=== PATIENT | male | born 1945 | race Caucasian/White ===

== ENCOUNTER 2019-12-01 06:50 | Outpatient (CLI) | payer MEDICARE, MEDICAID, SELFPAY ==
[2019-12-01 07:43] LABS: Basophils Absolute Auto 0.1 K/mm3 (0.0-0.1); Eosinophils Absolute Auto 0.4 K/mm3 (0-0.3); Eosinophils Percent Auto 6.7 % (0-4.4); Hematocrit 36.3 % (42.0-52.0); Hemoglobin 11.7 g/dL (14.0-18.0); Immature Granulocyte Absolute 0.03 K/mm3 (0.00-0.031); Immature Granulocyte Percent A 0.6 % (0-0.5); Lymphocytes Percent Auto 36.1 % (18.3-44.2); Mean Corpuscular HGB Conc 32.2 g/dl (32-36); Mean Corpuscular Volume 86.8 fl (80-100); Mean Platelet Volume 10.3 fl (7.4-10.4); Monocytes Absolute Auto 0.5 K/mm3 (0.1-0.6); Monocytes Percent Auto 10.3 % (2.6-8.5); Neutrophils Absolute Auto 2.4 K/mm3 (1.3-6.7); Neutrophils Percent Auto 45.3 % (45.5-73.1); Platelet Count Result 196 k/mm3 (150-375); Red Blood Count 4.18 M/mm3 (4.6-6.20); Red Cell Distribution Width 13.4 % (11.5-14.5); White Blood Count 5.3 K/mm3 (4.5-10.0)
[2019-12-01 08:02] LABS: Hemoglobin A1C 5.4 % (<5.7)
[2019-12-01 08:05] LABS: Blood Urea Nitrogen 24 mg/dL (9-20); Calcium 9.3 mg/dL (8.4-10.2); Carbon Dioxide 31 mmol/L (22-30); Chloride 103 mmol/L (98-107); Estimated Glomerular Filt Rate > 60; Glucose 97 mg/dL (75-110); Phenytoin Dilantin 4 ug/mL (10-20); Potassium 4.1 mmol/L (3.4-5.0); Sodium 143 mmol/L (137-145)
== END 2019-12-01 06:51 | disposition home or self-care (01) ==
PROVIDERS: PCP Internal Medicine; Visit Provider Internal Medicine
DX: G40.909 Epilepsy, unspecified, not intractable, without status epilepticus (principal); Z79.899 Other long term (current) drug therapy
CPT/HCPCS: 36415; 80048; 80185; 83036; 85025

== ENCOUNTER 2020-04-05 07:38 | Outpatient (CLI) | payer MEDICARE, MEDICAID, SELFPAY ==
[2020-04-05 08:31] LABS: Basophils Percent Auto 0.8 % (0.2-1.2); Eosinophils Absolute Auto 0.3 K/mm3 (0-0.3); Eosinophils Percent Auto 5.1 % (0-4.4); Hematocrit 38.7 % (42.0-52.0); Hemoglobin 12.4 g/dL (14.0-18.0); Immature Granulocyte Absolute 0.02 K/mm3 (0.00-0.031); Immature Granulocyte Percent A 0.4 % (0-0.5); Lymphocytes Absolute Auto 1.51 K/mm3 (0.9-3.2); Lymphocytes Percent Auto 30.8 % (18.3-44.2); Mean Corpuscular Hemoglobin 27.4 pg (26-34); Mean Corpuscular Volume 85.6 fl (80-100); Mean Platelet Volume 10.1 fl (7.4-10.4); Monocytes Absolute Auto 0.5 K/mm3 (0.1-0.6); Monocytes Percent Auto 10.8 % (2.6-8.5); Neutrophils Absolute Auto 2.6 K/mm3 (1.3-6.7); Neutrophils Percent Auto 52.1 % (45.5-73.1); Platelet Count Result 210 k/mm3 (150-375); Red Blood Count 4.52 M/mm3 (4.6-6.20); Red Cell Distribution Width 13.8 % (11.5-14.5); White Blood Count 4.9 K/mm3 (4.5-10.0)
[2020-04-05 08:38] LABS: Add Urine Microscopic? YES; Appearance Urine Cloudy (Clear); Bacteria Urine Trace /hpf; Bilirubin Urine Negative (Negative); Blood Urine 1+ (Negative); Color Urine Yellow (Yellow); Glucose Urine UA Negative (Negative); Ketones Urine Negative (Negative); Leukocyte Esterase Ur 2+ LEU/UL (NEGATIVE); Mucus Urine Rare /lpf; Nitrate Urine Negative (Negative); Protein Urine Negative (Negative); Specific Grav Ur 1.008 (1.001-1.035); Urobilinogen Urine Negative mg/dL (<2.0)
[2020-04-05 08:47] LABS: Blood Urea Nitrogen 20 mg/dL (9-20); Calcium 8.8 mg/dL (8.4-10.2); Carbon Dioxide 30 mmol/L (22-30); Chloride 105 mmol/L (98-107); Cholesterol 138 mg/dL (0-200); Estimated Glomerular Filt Rate > 60; Glucose 102 mg/dL (75-110); HDL Direct 46 mg/dL; Phenytoin Dilantin 6 ug/mL (10-20); Potassium 4.4 mmol/L (3.4-5.0); Sodium 140 mmol/L (137-145); Triglycerides 69 mg/dL (<150)
[2020-04-05 08:56] LABS: LDL Cholesterol Direct 67 mg/dL
[2020-04-05 09:02] LABS: Iron 65 ug/dL (49-181)
[2020-04-05 09:14] LABS: Percent Iron Saturation 23 % (20-50)
[2020-04-05 09:36] LABS: Free T4 Free Thyroxine 1.04 ng/mL (0.78-2.19); Vitamin D 25 Hydroxy 57.8 ng/mL
== END 2020-04-05 07:39 | disposition home or self-care (01) ==
PROVIDERS: PCP Internal Medicine; Visit Provider Internal Medicine
DX: G40.909 Epilepsy, unspecified, not intractable, without status epilepticus (principal); N31.9 Neuromuscular dysfunction of bladder, unspecified; D63.1 Anemia in chronic kidney disease; Z79.899 Other long term (current) drug therapy; N18.1 Chronic kidney disease, stage 1
CPT/HCPCS: 36415; 80048; 80061; 80185; 81001; 82306; 82728; 83540; 83550; 84439; 84443; 85025

== ENCOUNTER 2020-07-28 07:53 | Outpatient (CLI) | payer MEDICARE, MEDICAID, SELFPAY ==
[2020-07-28 08:45] LABS: Hematocrit 37.8 % (42.0-52.0); Hemoglobin 12.5 g/dL (14.0-18.0); Mean Corpuscular HGB Conc 33.1 g/dl (32-36); Mean Corpuscular Hemoglobin 28.2 pg (26-34); Mean Corpuscular Volume 85.1 fl (80-100); Mean Platelet Volume 10.1 fl (7.4-10.4); Platelet Count Result 213 k/mm3 (150-375); Red Blood Count 4.44 M/mm3 (4.6-6.20); Red Cell Distribution Width 13.5 % (11.5-14.5); White Blood Count 5.4 K/mm3 (4.5-10.0)
[2020-07-28 09:16] LABS: Anion Gap 7 mmol/L (8-16); Blood Urea Nitrogen 17 mg/dL (9-20); Calcium 9.1 mg/dL (8.4-10.2); Carbon Dioxide 32 mmol/L (22-30); Chloride 104 mmol/L (98-107); Estimated Glomerular Filt Rate 59; Glucose 101 mg/dL (75-110); Sodium 143 mmol/L (137-145)
[2020-07-28 09:32] LABS: Phenytoin Dilantin 7 ug/mL (10-20)
[2020-07-28 09:37] LABS: Neutrophils Percent Manual 42 % (46-73); Total Cells Counted 100
[2020-07-28 09:38] LABS: Atypical Lymphocytes Present; Basophils Absolute Manual 0.05 K/mm3 (0.0-0.1); Basophils Percent Manual 1 % (0-1); Eosinophils Absolute Manual 0.21 K/mm3 (0.02-0.5); Eosinophils Percent Manual 4 % (0-4); Lymphocytes Percent Manual 39 % (18-44); Monocytes Absolute Manual 0.75 K/mm3 (0.1-0.90); Monocytes Percent Manual 14 % (3-9); Platelet Estimate Adequate (Adequate)
[2020-07-28 09:39] LABS: Ovalocytes 1+ (NORMAL)
[2020-07-28 09:40] LABS: Tear Drop Cells 1+ (NORMAL)
== END 2020-07-28 07:54 | disposition home or self-care (01) ==
LOC: ANHLAB 07:55
PROVIDERS: PCP Internal Medicine; Visit Provider Internal Medicine
DX: G40.909 Epilepsy, unspecified, not intractable, without status epilepticus (principal); Z79.899 Other long term (current) drug therapy
CPT/HCPCS: 36415; 80048; 80185; 85025

== ENCOUNTER 2021-02-08 07:14 | Outpatient (CLI) | payer MEDICARE, MEDICAID, SELFPAY ==
[2021-02-08 07:50] LABS: Hemoglobin A1C 5.3 % (<5.7)
[2021-02-08 07:56] LABS: Alanine Aminotransferase 22 U/L (4-50); Albumin Level 4.1 g/dL (3.5-5.1); Alkaline Phosphatase 163 U/L (38-126); Anion Gap 7 mmol/L (8-16); Aspartate Amino Transferase 30 U/L (17-59); Bilirubin,Total 0.2 mg/dL (0.2-1.3); Blood Urea Nitrogen 16 mg/dL (9-20); Calcium 8.7 mg/dL (8.4-10.2); Carbon Dioxide 29 mmol/L (22-30); Chloride 107 mmol/L (98-107); Cholesterol 151 mg/dL (0-200); Estimated Glomerular Filt Rate > 60; Glucose 104 mg/dL (75-110); HDL Direct 54 mg/dL; Potassium 3.6 mmol/L (3.4-5.0); Sodium 143 mmol/L (137-145); Triglycerides 53 mg/dL (<150)
[2021-02-08 08:07] LABS: LDL Cholesterol Direct 72 mg/dL
[2021-02-08 08:22] LABS: Vitamin D 25 Hydroxy 55.6 ng/mL
[2021-02-11 23:36] LABS: Homocysteine 13.7 umol/L (<11.4)
== END 2021-02-08 07:15 | disposition home or self-care (01) ==
PROVIDERS: PCP Internal Medicine; Visit Provider Internal Medicine
DX: Z51.81 Encounter for therapeutic drug level monitoring (principal); N18.9 Chronic kidney disease, unspecified; Z79.899 Other long term (current) drug therapy; G40.909 Epilepsy, unspecified, not intractable, without status epilepticus; E55.9 Vitamin D deficiency, unspecified
CPT/HCPCS: 36415; 80053; 80061; 82306; 83036; 83090; 84439; 84443

== ENCOUNTER 2021-06-27 07:43 | Outpatient (CLI) | payer MEDICARE, MEDICAID, SELFPAY ==
[2021-06-27 08:49] LABS: Anion Gap 8 mmol/L (8-16); Blood Urea Nitrogen 19 mg/dL (9-20); Calcium 8.8 mg/dL (8.4-10.2); Carbon Dioxide 27 mmol/L (22-30); Chloride 106 mmol/L (98-107); Cholesterol 162 mg/dL (0-200); Estimated Glomerular Filt Rate > 60; Glucose 104 mg/dL (65-110); HDL Direct 56 mg/dL; Potassium 3.9 mmol/L (3.4-5.0); Sodium 141 mmol/L (137-145); Triglycerides 52 mg/dL (<150)
[2021-06-27 09:01] LABS: LDL Cholesterol Direct 71 mg/dL
[2021-06-27 09:21] LABS: Prostate Specific Antigen < 0.1 ng/mL (< OR = 4.0)
[2021-06-27 10:33] LABS: Add Urine Microscopic? YES; Appearance Urine Cloudy (Clear); Bacteria Urine Trace /hpf; Bilirubin Urine Negative (Negative); Blood Urine 1+ (Negative); Color Urine Yellow (Yellow); Glucose Urine UA Negative (Negative); Ketones Urine Negative (Negative); Leukocyte Esterase Ur 2+ LEU/UL (NEGATIVE); Mucus Urine Rare /lpf; Nitrate Urine Positive (Negative); Protein Urine 2+ mg/dL (Negative); RBC Urine 21-50 /hpf (0-2); Specific Grav Ur 1.012 (1.001-1.035); Urobilinogen Urine Negative mg/dL (<2.0); WBC Clumps Urine Present /HPF; WBC Urine >75 /hpf (0-3)
[2021-06-29 13:04] LABS: Phenytoin Dilantin Free 0.6 mg/L (1.0-2.0)
[2021-06-30 11:08] LABS: Vitamin D 1,25 (OH)2 Total 33 pg/mL (18-72); Vitamin D2 1,25 (OH)2 <8 pg/mL; Vitamin D3 1,25 (OH)2 33 pg/mL
[2021-06-30 11:35] LABS: Homocysteine 10.8 umol/L (<11.4)
== END 2021-06-27 07:44 | disposition home or self-care (01) ==
PROVIDERS: PCP Internal Medicine; Visit Provider Internal Medicine
DX: R79.89 Other specified abnormal findings of blood chemistry (principal); E55.9 Vitamin D deficiency, unspecified; Z79.899 Other long term (current) drug therapy; Z12.5 Encounter for screening for malignant neoplasm of prostate; G40.909 Epilepsy, unspecified, not intractable, without status epilepticus
CPT/HCPCS: 36415; 80048; 80061; 80186; 81001; 82652; 83090; 84153; G0103

== ENCOUNTER 2021-11-07 07:25 | Outpatient (CLI) | payer OTHER, SELFPAY ==
[2021-11-07 09:16] LABS: Basophils Absolute Auto 0.1 K/mm3 (0.0-0.1); Basophils Percent Auto 0.9 % (0.2-1.2); Eosinophils Absolute Auto 0.2 K/mm3 (0-0.3); Eosinophils Percent Auto 3.2 % (0-4.4); Hemoglobin 12.8 g/dL (14.0-18.0); Immature Granulocyte Absolute 0.02 K/mm3 (0.00-0.031); Immature Granulocyte Percent A 0.4 % (0-0.5); Lymphocytes Absolute Auto 1.38 K/mm3 (0.9-3.2); Lymphocytes Percent Auto 25.9 % (18.3-44.2); Mean Corpuscular HGB Conc 32.8 g/dl (32-36); Mean Corpuscular Hemoglobin 28.5 pg (26-34); Mean Corpuscular Volume 86.9 fl (80-100); Mean Platelet Volume 10.5 fl (7.4-10.4); Monocytes Absolute Auto 0.5 K/mm3 (0.1-0.6); Monocytes Percent Auto 10.2 % (2.6-8.5); Neutrophils Absolute Auto 3.2 K/mm3 (1.3-6.7); Neutrophils Percent Auto 59.4 % (45.5-73.1); Platelet Count Result 208 k/mm3 (150-375); Red Blood Count 4.49 M/mm3 (4.6-6.20); Red Cell Distribution Width 13.5 % (11.5-14.5); White Blood Count 5.3 K/mm3 (4.5-10.0)
[2021-11-07 09:31] LABS: Hemoglobin A1C 5.4 % (<5.7)
[2021-11-07 09:34] LABS: Anion Gap 10 mmol/L (8-16); Blood Urea Nitrogen 16 mg/dL (9-20); Carbon Dioxide 26 mmol/L (22-30); Chloride 105 mmol/L (98-107); Estimated Glomerular Filt Rate > 60; Glucose 104 mg/dL (65-110); Potassium 3.7 mmol/L (3.4-5.0); Sodium 141 mmol/L (137-145)
== END 2021-11-07 07:26 | disposition home or self-care (01) ==
PROVIDERS: PCP Internal Medicine; Visit Provider Internal Medicine
DX: Z51.81 Encounter for therapeutic drug level monitoring (principal); Z79.899 Other long term (current) drug therapy; Z83.3 Family history of diabetes mellitus; N31.9 Neuromuscular dysfunction of bladder, unspecified; G40.909 Epilepsy, unspecified, not intractable, without status epilepticus
CPT/HCPCS: 36415; 80048; 83036; 85025

== ENCOUNTER 2022-04-26 11:48 | Emergency (ER) | payer OTHER, SELFPAY ==
--- NOTE | ~2022-04-26 | US_ITS ---
EXAMINATION: US venous doppler [facility] DATE: 04/26/2022 13:13 INDICATION: Left lower limb swelling and pain TECHNIQUE: Gonsales scale images without and with compression and Doppler images of the left lower extrem ity veins were obtained. COMPARISON: None FINDINGS: The left common femoral vein, profunda femoral vein, femoral vein, popliteal vein, peroneal trunk, posterior tibial veins, and greater saphenous vein are patent. IMPRESSION: 1. Patent left lower extremity veins. No evidence of deep venous thrombosis. Reviewed, dictated and finalized at location B.
--- NOTE | ~2022-04-26 | XR_ITS ---
CORRECTED REPORT WRONG ORDER ENTERED 04/26/22 PK EXAMINATION: XR ANKLE LT MIN 3V. INDICATION: ;LEFT ankle swelling TECHNIQUE: Four views of the LEFTankle are obtained. COMPARISON: None available FINDINGS: There is diffuse soft tissue swelling of ankle. Bone alignment is normal. There is no fracture. IMPRESSION: 1. Ankle soft tissue swelling without acute osseous abnormality. Reviewed, dictated and finalized at location B. BRYSOND
[2022-04-26 12:10] VITALS: BP 145/98; PULSE 80; RESP 16; TEMP 36.6; O2SAT 97
--- NOTE | 2022-04-26 12:55 | ED.EXTPRO ---
HPI - Extremity Problem General Chief complaint: Extremity Problem,Nontraumatic Stated complaint: left leg edema Time Seen by Provider: 04/26/22 12:05 History of Present Illness HPI Narrative: Patient is a 76-year-old male who presents ER with left lower extremity edema. Patient has mental delay and social history gave a history. Patient was reporting pain to his left leg 4 days ago but he wears overalls so she was unable to see it. Today she noticed the leg was swollen and slightly reddened in the foot and ankle. Patient has no chest pain or shortness of breath. No recent long distance travel. No history of clots in the past. Related Data Home Medications Medication Instructions Recorded Confirmed fexofenadine 180 mg tablet 180 mg PO DAILY 04/14/20 11/14/21 (Terri Allergy) folic acid 800 mcg tablet 0.8 mg PO DAILY 02/15/21 11/14/21 mecobalamin (vitamin B12) 1,000 1,000 mcg sublingual DAILY 02/15/21 11/14/21 mcg disintegrating tablet,sublingual Allergies Allergy/AdvReac Type Severity Reaction Status Date / Time No Known Allergies Allergy Verified 04/26/22 12:13 Review of Systems Review of Systems: All systems reviewed & are unremarkable except as noted in HPI and below Constitutional: Constitutional: Denies chills and Denies fever(s) Cardiovascular: Cardiovascular: Denies chest pain and Denies rapid heart rate Respiratory: Respiratory: Denies cough, Denies dyspnea and Denies wheezing Musculoskeletal: Comments: Left lower extremity swelling. Integumentary/Breasts: Skin/Breast: Reports erythema, Denies rash and Denies skin ulcer PMF Past Medical History Medical History (Updated 04/26/22 @ 15:05 by Sterling Marshall MD) BMI 31.0-31.9,adult BMI 32.0-32.9,adult BMI 33.0-33.9,adult Cognitive developmental delay Colon cancer screening Elevated homocysteine Encounter for routine adult health examination without abnormal findings Epilepsy Family history of diabetes mellitus Frequent UTI Hearing loss Impacted cerumen of both ears Knee pain Knee swelling Left leg swelling Need for influenza vaccination Pain of left calf Pedal edema Surgical History Surgical History (Updated 04/26/22 @ 13:03 by Sterling Marshall MD) History of repair of congenital cleft palate History of transurethral resection of prostate Family History Family History Mother Family history of diabetes mellitus in first degree relative Family history of malignant neoplasm of breast in first degree relative Diabetes mellitus Father Family history of diabetes mellitus in first degree relative Diabetes mellitus Sibling Family history of diabetes mellitus in first degree relative Diabetes mellitus Social History Social History Smoking status: Never smoker Alcohol intake: never Exam Narrative: GENERAL: Well-appearing, well-nourished, and in no acute distress. HEAD: Normocephalic, atraumatic. ENT: Mucous membranes moist. CHEST: Clear to auscultation. No respiratory distress. HEART: Regular rate and rhythm. Normal peripheral pulses. ABDOMEN: Soft, nontender, nondistended. EXTREMITIES: Normal range of motion. 2+ edema of the left lower extremity with redness in the foot and ankle. Tender palpation over the erythematous areas. SKIN: Warm, dry, no rash. NEURO: Alert and oriented x3. PSYCH: Normal mood and affect. Course Course Emergency Course: No DVT or fracture. White count not elevated but this may be early cellulitis. Patient has normal range of motion of the joint so gout and septic arthritis are felt unlikely. Discussed compression stocking and elevation with antibiotics and follow-up with PCP. Patient and sister verbalized understanding. Vital Signs Vital signs: Vital Signs Temperature 97.9 F 04/26/22 12:10 Pulse Rate 80 04/26/22 12:10 Respiratory Rate 16 04/26/22 12
[2022-04-26 13:26] LABS: Basophils Absolute Auto 0.1 K/mm3 (0.0-0.1); Basophils Percent Auto 0.9 % (0.2-1.2); Eosinophils Absolute Auto 0.1 K/mm3 (0-0.3); Eosinophils Percent Auto 2.1 % (0-4.4); Hematocrit 39.5 % (42.0-52.0); Hemoglobin 12.7 g/dL (14.0-18.0); Immature Granulocyte Absolute 0.01 K/mm3 (0.00-0.031); Immature Granulocyte Percent A 0.2 % (0-0.5); Lymphocytes Absolute Auto 1.45 K/mm3 (0.9-3.2); Lymphocytes Percent Auto 25.3 % (18.3-44.2); Mean Corpuscular HGB Conc 32.2 g/dl (32-36); Mean Corpuscular Hemoglobin 27.7 pg (26-34); Mean Corpuscular Volume 86.2 fl (80-100); Monocytes Absolute Auto 0.6 K/mm3 (0.1-0.6); Monocytes Percent Auto 10.8 % (2.6-8.5); Neutrophils Absolute Auto 3.5 K/mm3 (1.3-6.7); Neutrophils Percent Auto 60.7 % (45.5-73.1); Platelet Count Result 224 k/mm3 (150-375); Red Blood Count 4.58 M/mm3 (4.6-6.20); Red Cell Distribution Width 13.9 % (11.5-14.5); White Blood Count 5.7 K/mm3 (4.5-10.0)
[2022-04-26 13:38] LABS: Anion Gap 8 mmol/L (8-16); Blood Urea Nitrogen 16 mg/dL (9-20); Calcium 8.7 mg/dL (8.4-10.2); Carbon Dioxide 29 mmol/L (22-30); Chloride 105 mmol/L (98-107); Estimated CRCL calculation 64 ml/min; Estimated Glomerular Filt Rate > 60; Glucose 110 mg/dL (65-110); Potassium 3.8 mmol/L (3.4-5.0); Sodium 142 mmol/L (137-145)
[2022-04-26 13:40] LABS: INR 1.1; Partial Thromboplastin Time 27.6 SECONDS (22.3-36.8)
[2022-04-26 15:28] VITALS: BP 138/95; PULSE 85; RESP 18; O2SAT 100
== END 2022-04-26 15:30 | disposition home or self-care (01) ==
PROVIDERS: Emergency Provider Emergency Medicine; PCP Internal Medicine
DX: R60.0 Localized edema (principal); L03.116 Cellulitis of left lower limb
CPT/HCPCS: 36415; 73610; 80048; 85025; 85610; 85730; 93971; 99284

== ENCOUNTER 2022-09-17 08:49 | Outpatient (CLI) | payer OTHER, SELFPAY ==
--- NOTE | 2022-09-17 09:07 | ECHO_ITS ---
Patient Info Name: Tomas Mart Age: 76 years : 1945 Gender: Male Ht: 69 in Wt: 200 lbs BSA: 2.12 m2 HR: 84 bpm BP: 182 / 115 mmHg Technical Quality: Fair Exam Date: 09/17/2022 9:48 AM Exam Location: [facility] Patient Status: Outpatient Admit Date: 09/17/2022 Staff Ordering Physician: Campos Flores MD Clinical Reimbursement Specialist: Otis Camacho, [place], [place] Attending Provider: Campos Flores MD Referring Physician: Mark LIMA; Exam Type: CA echo doppler color flow Study Info Indications R01.1 - Cardiac murmur, unspecified Complete two-dimensional, color flow and Doppler transthoracic echocardiogram is performed. Strain analysis performed. Summary 1. Complete two-dimensional, color flow and Doppler transthoracic echocardiogram is performed. 2. Left ventricular chamber dimension is normal. 3. Left ventricular systolic function is hyperdynamic, estimated at >70%. 4. The left ventricular diastolic function is grade I diastolic dysfunction. 5. E/e' 13 is mildly elevated. 6. Global longitudinal strain is normal at -17.5%. 7. There is mild aortic valve regurgitation. Left Ventricle Global longitudinal strain is normal at -17.5%. E/e' 13 is mildly elevated. Left ventricular chamber dimension is normal. Left ventricular systolic function is hyperdynamic, estimated at >70%. The left ventricular diastolic function is grade I diastolic dysfunction. Right Ventricle Right ventricular systolic function is normal and with normal TAPSE 1.8 cm. Right ventricular chamber dimension is normal. Left Atria Left atrial chamber dimension is normal. Right Atria Right atrial chamber dimension is normal. Aortic Valve The aortic valve is probable trileaflet. There is no aortic valve stenosis. There is mild aortic valve regurgitation. Pulmonic Valve There is no pulmonic regurgitation. Mitral Valve There is no mitral valve stenosis. There is no mitral valve regurgitation. Tricuspid Valve There is no tricuspid valve regurgitation. Pericardium/Pleural There is no pericardial effusion. Inferior Vena Cava Normal inferior vena cava with >50% collapse upon inspiration consistent with normal right atrial pressure, 5 mmHg. Aorta The aortic root size at the sinus of Valsalva is normal. Left Ventricular Outflow Tract Name Value Normal LVOT 2D LVOT Diameter 2.0 cm LVOT Doppler LVOT Peak Gradient 9 mmHg LVOT Mean Gradient 5 mmHg LVOT VTI 29 cm LVOT VTI/AV VTI Ratio 0.7 LVOT Stroke Volume 90 ml LVOT CO 7.1 l/min LVOT CI 3.3 l/min/m2 Mitral Valve Name Value Normal MV Doppler MV Decel [place] 332 cm/s2
== END 2022-09-17 08:50 | disposition home or self-care (01) ==
LOC: ANHCARD 08:51
PROVIDERS: PCP Internal Medicine; Visit Provider Internal Medicine
DX: R01.1 Cardiac murmur, unspecified (principal); I35.1 Nonrheumatic aortic (valve) insufficiency
CPT/HCPCS: 93306

== ENCOUNTER 2022-10-31 08:15 | Outpatient (RCR) | payer OTHER, SELFPAY ==
--- NOTE | 2022-09-25 10:11 | PTOPEVAL1 ---
Assessment and note entered by Tracy Nowak, PT Evaluation Information Assessment Status Evaluation Diagnosis L leg lymphedema Onset Jun 2022 Subjective Information Sister Raquel reports Sam has fallen 6 times in the past 6 months; she and other family members have to lift him up off the floor; he tends to trip over his own feet; Reported Pain Level Pain Score Mild Pain: Roldan Gurrola Additional Pain Score Comments points to L anterior mid dawkins Assessment PT Clinical Summary Sam has the diagnosis of L LE lymphedema due to cellulitis. He has completed the antibiotics. His sister is his caregiver and reports he is sedetary and does not do much. With the evaluation: circumferential measurement of L LE is 83.5 cm larger than the R leg, with redness and fibrotic tissue over lower leg. He has decreased strength of B ankles, with reports of falls and poor walking balance. Skilled PT services are indicated for complete decongestive therapy--manual lymph drainage, intermittent compression pump, LE exercises, gait training/assistive device education, multilayer compression wraps and education for self massage, compression garment and self care/management of lymphedema. Plan of Care Interventions Gait Training,Intermittent Compression,Lymphedema Compression Pump,Manual Lymph Drainage,Neuro Re- education,Patient/Caregiver Education,Therapeutic Exercise PT Services Indicated Yes Treatment Frequency and 0-3x/wk for 8 weeks, due to availability of Duration therapist, not able to begin treatment for few weeks. These treatments will address the objective and functional deficits as defined above. The patient will be advanced safely and appropriately in order for the patient to progress towards his/her prior level of function. Additional exercises will be introduced and as well as a comprehensive home exercise program upon discharge, if needed, ?to ensure carryover of functional gains achieved in the clinic. This treatment plan has been reviewed and agreement upon by the patient.
--- NOTE | 2022-11-13 16:17 | PCPTNOTE ---
PHYSICAL THERAPY DISCHARGE 11-13-22 Attending Provider: Campos Flores MD Patient:Tomas Mart Date of :1945 Sam has received 9 PT sessions, from September 25 to October 31, for the diagnosis of L LE lymphedema. His L leg has improved: circumferential measurement, from the bottom of his foot to 68 cm has decreased from 724.2 cm to 670.5 cm; skin integrity has improved; he and his sister have been educated on manual lymph drainage and skin care, and compression garment. He has a 20-30 mmHg calf high compression garment: Mediven Plus, standard, size IV, closed toe. It fits him well and he reports it is comfortable. His sister assists him with donning/doffing the garment. The goals have been achieved. Discharge from PT services. Thank you for referring Sam to [facility].
== END 2022-11-13 17:05 | disposition home or self-care (01) ==
LOC: ANHPT 08:15
PROVIDERS: PCP Internal Medicine; Visit Provider Internal Medicine
DX: M79.662 Pain in left lower leg (principal); M79.89 Other specified soft tissue disorders
CPT/HCPCS: 29581; 97110; 97140; 97161

== ENCOUNTER 2023-01-09 14:17 | Emergency (ER) | payer OTHER, SELFPAY ==
--- NOTE | ~2023-01-09 | CT_ITS ---
EXAMINATION: CT abdomen pelvis w con DATE: 01/09/2023 18:29 INDICATION: nonlocalized abdominal pain TECHNIQUE: Computed tomography (CT) of the abdomen and pelvis was performed with 100 mL Omnipaque-350 intravenous contrast. Automated exposure control and iterative reconstruction technique were employe d. The dose-length product was 1852.93 mGy-cm. COMPARISON: 05/07/2018. FINDINGS: Lower thorax: Bibasilar atelectasis. Aortic valve and coronary and mitral calcifications. Liver: Normal. Biliary/Gallbladder: Gallbladder is normal. No bile duct dilation. Pancreas: Marked fatty atrophy/infiltration. Mildly lobulated 2.9 cm cystic mass most closely associa julio c with the tail the pancreas, demonstrating long-term stability. Spleen: Normal. Adrenals:No mass. Kidneys: Multiple bilateral simple cysts. Multiple bilateral hypodensities that are too small to marilyn acterize but most likely represent cysts. Mild right and severe left pelviectasis. Bilateral urotheli al enhancement. Nonobstructing 1.3 cm left lower pole calcification. GI tract: The rectum is dilated to 10.9 cm by formed stool, without surrounding inflammatory change. Hypermobile cecum located in the right upper quadrant. No small bowel dilation. Appendix not visualiz ed, probably surgically absent. Diverticulosis without diverticulitis. Mesentery/Peritoneum: No ascites, mass, or free air. Retroperitoneum: No mass. Pelvis: Moderate urinary bladder distention with wall thickening and edema. Soft Tissues: Soft tissues and body wall unremarkable. Bones: Moderate superior angle deformity and height loss at L4, new since the prior study. IMPRESSION: Marked fecal impaction. Cystitis, moderate urinary bladder distention, and possible bilateral ascendi ng infection. Reviewed, dictated and finalized at location K. IMPRESSION: Marked fecal impaction. Cystitis, moderate urinary bladder distention, and poss ible bilateral ascending infection.
--- NOTE | ~2023-01-09 | CT_ITS ---
EXAMINATION: CT brain wo con DATE: 01/09/2023 18:21 INDICATION: head injury . TECHNIQUE: Computed tomography (CT) of the head was performed without intravenous contrast. The mA wa s adjusted according to patient size. Iterative reconstruction technique was employed. The dose-lengt h product was 983.67 mGy-cm. COMPARISON: 02/15/2016. FINDINGS: No acute intracranial hemorrhage or extra-axial fluid collection. No hydrocephalus, mass, or herniation. No acute ischemic infarct. Unremarkable dural venous sinus attenuation. No acute osseous abnormality. Bilateral mastoid and middle ear fluid, the remaining aerated spaces are clear. Moderate atrophy and chronic white matter change. Atherosclerotic intracranial calcification. Bilater al basal ganglia calcification. IMPRESSION: No acute intracranial process. Bilateral mastoid air cell and middle ear fluid, correlate for clinica l findings of otomastoiditis. Reviewed, dictated and finalized at [facility] K. IMPRESSION: No acute intracranial process. Bilateral mastoid air cell and middle ear fluid, correlate for clinical findings of otomastoiditis.
[2023-01-09 14:22] VITALS: BP 138/87; PULSE 114; RESP 18; TEMP 37.3; O2SAT 100
[2023-01-09 17:25] VITALS: PULSE 102
[2023-01-09] MEDS: SODIUM CHLORIDE 0.9% IV 1,000 ML 999 ML IV CONT (17:56)
[2023-01-09] MEDS: ACETAMINOPHEN 500 MG TABLET 1000 MG PO (17:57)
[2023-01-09 17:59] LABS: Basophils Absolute Auto 0.1 K/mm3 (0.0-0.1); Basophils Percent Auto 0.5 % (0.2-1.2); Eosinophils Percent Auto 0.3 % (0-4.4); Hematocrit 39.9 % (42.0-52.0); Hemoglobin 13.2 g/dL (14.0-18.0); Immature Granulocyte Absolute 0.04 K/mm3 (0.00-0.031); Immature Granulocyte Percent A 0.4 % (0-0.5); Lymphocytes Absolute Auto 0.82 K/mm3 (0.9-3.2); Mean Corpuscular HGB Conc 33.1 g/dl (32-36); Mean Corpuscular Hemoglobin 28.4 pg (26-34); Mean Corpuscular Volume 85.8 fl (80-100); Mean Platelet Volume 10.3 fl (7.4-10.4); Monocytes Absolute Auto 0.7 K/mm3 (0.1-0.6); Monocytes Percent Auto 7.1 % (2.6-8.5); Neutrophils Absolute Auto 8.6 K/mm3 (1.3-6.7); Neutrophils Percent Auto 83.7 % (45.5-73.1); Platelet Count Result 256 k/mm3 (150-375); Red Blood Count 4.65 M/mm3 (4.6-6.20); Red Cell Distribution Width 13.1 % (11.5-14.5); White Blood Count 10.3 K/mm3 (4.5-10.0)
[2023-01-09 18:02] VITALS: BP 130/68; PULSE 103; RESP 18; O2SAT 96
[2023-01-09 18:10] LABS: Alanine Aminotransferase 27 U/L (6-50); Albumin Level 4.1 g/dL (3.5-5.1); Alkaline Phosphatase 183 U/L (38-126); Anion Gap 11 mmol/L (8-16); Aspartate Amino Transferase 24 U/L (17-59); Bilirubin,Total 1.2 mg/dL (0.2-1.3); Blood Urea Nitrogen 37 mg/dL (9-20); Calcium 8.4 mg/dL (8.4-10.2); Carbon Dioxide 26 mmol/L (22-30); Chloride 97 mmol/L (98-107); Estimated CRCL calculation 56 ml/min; Estimated Glomerular Filt Rate > 60; Glucose 136 mg/dL (65-110); Lipase 309 U/L (23-300); Potassium 3.5 mmol/L (3.4-5.0); Sodium 134 mmol/L (137-145)
[2023-01-09 19:09] VITALS: BP 125/64; PULSE 93; RESP 22; O2SAT 97
--- NOTE | 2023-01-09 19:56 | ED.FALL ---
HPI - Fall General Chief Complaint: Fall Stated Complaint: fall with abdominal pain and head injury Time Seen by Provider: 01/09/23 17:26 History of Present Illness HPI Narrative: Patient is a 77-year-old male with intellectual disability who presents ER after a fall yesterday. He was in his room when he fell while bent over into a bed frame hitting his head and his abdomen. Did well overnight but today he was having some abdominal pain and some mild frontal headache. No fevers or chills or sweats. Related Data Home Medications Medication Instructions Recorded Confirmed fexofenadine 180 mg tablet 180 mg PO DAILY 04/14/20 12/28/22 (Terri Allergy) folic acid 800 mcg tablet 0.8 mg PO DAILY 02/15/21 12/28/22 mecobalamin (vitamin B12) 1,000 1,000 mcg sublingual DAILY 02/15/21 12/28/22 mcg disintegrating tablet,sublingual Allergies Allergy/AdvReac Type Severity Reaction Status Date / Time No Known Allergies Allergy Verified 01/09/23 17:25 [facility] Past Medical History Medical History (Updated 01/09/23 @ 22:08 by Sterling Marshall MD) Aortic insufficiency BMI 31.0-31.9,adult BMI 32.0-32.9,adult BMI 33.0-33.9,adult Cognitive developmental delay Colon cancer screening Elevated alkaline phosphatase level Elevated homocysteine Encounter for routine adult health examination without abnormal findings Epilepsy Family history of diabetes mellitus Frequent UTI Hearing loss Heart murmur Impacted cerumen of both ears Knee pain Knee swelling Left leg swelling Need for influenza vaccination Pain of left calf Pedal edema Surgical History Surgical History History of repair of congenital cleft palate History of transurethral resection of prostate Family History Family History Mother Family history of diabetes mellitus in first degree relative Family history of malignant neoplasm of breast in first degree relative Diabetes mellitus Father Family history of diabetes mellitus in first degree relative Diabetes mellitus Sibling Family history of diabetes mellitus in first degree relative Diabetes mellitus Social History Social History Smoking status: Never smoker Alcohol intake: never Lack of Transportation: No Lack of Food: Never True Current Housing: I Have Housing Concerned About Future Housing: No Difficulty Paying Gas/Electric Bills: No Difficulty Paying for Meds: No Currently Unemployed: No Education: Never Attended/Kindergarten Only Difficulty w/ Childcare or Family Care: No Living arrangements: with family Occupation/Education: other Gender identity (if verbalized by the patient): Male Exam Narrative: GENERAL: Well-appearing, well-nourished, and in no acute distress. HEAD: Normocephalic, atraumatic. EYES: PERRL and EOMI. ENT: Mucous membranes moist. Debris in ear canals bilaterally. No tenderness or swelling over the mastoids bilaterally. CHEST: Clear to auscultation. No respiratory distress. HEART: Regular rate and rhythm. Normal peripheral pulses. ABDOMEN: Soft, tenderness with exam of the lower abdomen without guarding, nondistended. EXTREMITIES: Normal range of motion. No edema. SKIN: Warm, dry, no rash. NEURO: Alert and oriented x3 with intellectual disability. PSYCH: Normal mood and affect. Course Course Emergency Course: Patient resting comfortably with sister at bedside. Discussed the imaging and lab results. Patient has received IV antibiotics for UTI. They do perform straight catheterization at home and infections are common. There is no evidence of infection of the patient's ears though I cannot see the TM. They report they see Dr. Avalos and I have recommended they follow-up with him as patient will be on antibiotics but has no external signs of mastoiditis and is not exhibiting
[2023-01-09 20:09] LABS: Appearance Urine Cloudy (Clear); Bacteria Urine 4+ /hpf; Bilirubin Urine Negative (Negative); Color Urine Yellow (Yellow); Glucose Urine UA Negative (Negative); Ketones Urine Trace mg/dL (Negative); Leukocyte Esterase Ur 2+ LEU/UL (Negative); Need Manual Microscopic Reviewed; Nitrate Urine Positive (Negative); Protein Urine 2+ mg/dL (Negative); RBC Urine 21-50 /hpf (0-2); Specific Grav Ur 1.012 (1.001-1.035); Squamous Epithelial Cell Urine Few /hpf (Few); WBC Urine 21-50 /hpf; pH Urine 6.5 (5.0-9.0)
[2023-01-09 20:11] LABS: Add Urine Microscopic? YES
[2023-01-09 22:18] VITALS: BP 133/77; PULSE 95; RESP 17; O2SAT 97
== END 2023-01-09 22:19 | disposition home or self-care (01) ==
PROVIDERS: Emergency Provider Emergency Medicine; PCP Internal Medicine
DX: N30.90 Cystitis, unspecified without hematuria (principal); K59.00 Constipation, unspecified; I35.1 Nonrheumatic aortic (valve) insufficiency; G40.909 Epilepsy, unspecified, not intractable, without status epilepticus
CPT/HCPCS: 36415; 70450; 74177; 80053; 81001; 83690; 85025; 87086; 87147; 87181; 87186; 96361; 96365; 99284; A9270; J0696; J7030; Q9967

== ENCOUNTER 2023-01-24 08:28 | Outpatient (CLI) | payer OTHER, SELFPAY ==
--- NOTE | ~2023-01-24 | US_ITS ---
EXAMINATION: US abdomen limited DATE: 01/24/2023 09:12 INDICATION: Abnormal levels of other serum enzymes TECHNIQUE: Multiple grayscale and Doppler ultrasound images of the abdomen were obtained. COMPARISON: CT, 01/09/2023 FINDINGS: Bowel gas obscures visualization of the pancreas. The visualized portions of the pancreas a re unremarkable. The liver is normal with normal echogenicity and echotexture. No surface nodularity. Normal hepatopetal flow in the main portal vein. Stones are present in the nondistended gallbladder. There is no gallbladder wall thickening or pericholecystic fluid. The normal common bile duct measur es 3 mm. There was no sonographic Camacho sign. IMPRESSION: 1. Cholelithiasis without evidence of cholecystitis. Reviewed, dictated and finalized at location L.
== END 2023-01-24 08:29 | disposition home or self-care (01) ==
LOC: ANHIMG 08:30
PROVIDERS: PCP Internal Medicine; Visit Provider Internal Medicine
DX: R74.8 Abnormal levels of other serum enzymes (principal); K80.20 Calculus of gallbladder without cholecystitis without obstruction
CPT/HCPCS: 76705

== ENCOUNTER 2024-05-30 18:12 | Emergency (ER) | payer OTHER, SELFPAY ==
[2024-05-30 18:20] VITALS: BP 101/69; PULSE 85; RESP 20; TEMP 36.4; O2SAT 98
[2024-05-30 22:35] LABS: Basophils Percent Auto 0.3 % (0.2-1.2); Eosinophils Percent Auto 0.1 % (0-4.4); Hematocrit 40.1 % (42.0-52.0); Hemoglobin 13.3 g/dL (14.0-18.0); Immature Granulocyte Absolute 0.01 K/mm3 (0.00-0.031); Immature Granulocyte Percent A 0.1 % (0-0.5); Lymphocytes Absolute Auto 0.74 K/mm3 (0.9-3.2); Lymphocytes Percent Auto 10.1 % (18.3-44.2); Mean Corpuscular HGB Conc 33.2 g/dl (32-36); Mean Corpuscular Hemoglobin 29.1 pg (26-34); Mean Corpuscular Volume 87.7 fl (80-100); Mean Platelet Volume 10.1 fl (7.4-10.4); Monocytes Absolute Auto 0.5 K/mm3 (0.1-0.6); Monocytes Percent Auto 7.2 % (2.6-8.5); Neutrophils Percent Auto 82.2 % (45.5-73.1); Platelet Count Result 234 k/mm3 (150-375); Red Blood Count 4.57 M/mm3 (4.6-6.20); Red Cell Distribution Width 13.2 % (11.5-14.5); White Blood Count 7.4 K/mm3 (4.5-10.0)
[2024-05-30 22:45] LABS: Alanine Aminotransferase 22 U/L (6-50); Albumin Level 4.2 g/dL (3.5-5.1); Alkaline Phosphatase 205 U/L (38-126); Anion Gap 15 mmol/L (4-12); Aspartate Amino Transferase 26 U/L (17-59); Bilirubin,Total 0.7 mg/dL (0.2-1.3); Blood Urea Nitrogen 24 mg/dL (9-20); Calcium 9.1 mg/dL (8.4-10.2); Carbon Dioxide 26 mmol/L (22-30); Chloride 97 mmol/L (98-107); Estimated CRCL calculation 52 ml/min; Estimated Glomerular Filt Rate > 60; Glucose 160 mg/dL (65-110); Lipase 124 U/L (23-300); Potassium 4.2 mmol/L (3.4-5.0); Sodium 138 mmol/L (137-145)
--- NOTE | 2024-05-30 23:28 | ED.ABDPAIN ---
HPI - Abdominal Pain General Chief Complaint: Abdominal Pain Stated Complaint: abd pain, constipated, n/v Time Seen by Provider: 05/30/24 21:33 History of Present Illness HPI narrative: Patient with history of constipation presents here with constipation, has not had a bowel movement in several days, and today started having nausea and vomiting. Related Data Home Medications Medication Instructions Recorded Confirmed fexofenadine 180 mg tablet 180 mg PO DAILY 04/14/20 03/12/24 (Terri Allergy) folic acid 800 mcg tablet 0.8 mg PO DAILY 02/15/21 03/12/24 mecobalamin (vitamin B12) 1,000 1,000 mcg sublingual DAILY 02/15/21 03/12/24 mcg disintegrating tablet,sublingual Allergies Allergy/AdvReac Type Severity Reaction Status Date / Time No Known Allergies Allergy Verified 03/12/24 10:00 Review of Systems Review of Systems: All systems reviewed & are unremarkable except as noted in HPI and below PMFSH Past Medical History Medical History (Updated 05/30/24 @ 22:57 by Abimbola Yang MD) Aortic insufficiency BMI 28.0-28.9,adult BMI 29.0-29.9,adult BMI 31.0-31.9,adult BMI 32.0-32.9,adult BMI 33.0-33.9,adult Cognitive developmental delay Colon cancer screening Elevated alkaline phosphatase level Elevated homocysteine Encounter for routine adult health examination with abnormal findings Encounter for routine adult health examination without abnormal findings Epilepsy Family history of diabetes mellitus Frequent UTI Hearing loss Heart murmur Impacted cerumen of both ears Knee pain Knee swelling Left leg swelling Lymphedema Need for influenza vaccination Pain of left calf Pedal edema UTI (urinary tract infection) Surgical History Surgical History History of repair of congenital cleft palate History of transurethral resection of prostate Family History Family History Mother Family history of diabetes mellitus in first degree relative Family history of malignant neoplasm of breast in first degree relative Diabetes mellitus Father Family history of diabetes mellitus in first degree relative Diabetes mellitus Sibling Family history of diabetes mellitus in first degree relative Diabetes mellitus Social History Social History Smoking status: Never smoker Alcohol intake: never Lack of Transportation: No Lack of Food: Never True Current Housing: I Have Housing Concerned About Future Housing: No Difficulty Paying Gas/Electric Bills: No Difficulty Paying for Meds: No Currently Unemployed: No Education: Never Attended/Kindergarten Only Difficulty w/ Childcare or Family Care: No Living arrangements: with family Occupation/Education: other Gender identity (if verbalized by the patient): Male Exam Narrative: EXAMINATION OF ORGAN SYSTEMS/BODY AREAS: Constitutional: Vital signs per nursing GENERAL:[No acute distress, non-toxic appearing.] HEAD: Normal with no signs of head trauma. EYES: EOMI, conjunctiva normal ENT: Hearing grossly intact LUNGS: Nonlabored breathing. HEART: [Regular rate and rhythm] ABD: [Soft], slightly distended and [mildly tender to palpation] EXT: Normal range of motion SKIN: [No rashes or lesions.] NEURO: [Alert and oriented x 3. No gross focal sensory or strength deficits.] PSYCH: Normal affect Course Vital Signs Vital signs: Vital Signs Temperature 97.5 F L 05/30/24 18:20 Pulse Rate 85 05/30/24 18:20 Respiratory Rate 20 05/30/24 18:20 Blood Pressure 101/69 05/30/24 18:20 Pulse Oximetry 98 05/30/24 18:20 Oxygen Delivery Room Air 05/30/24 18:20 Temperature 97.5 F L 05/30/24 18:20 Pulse Rate 85 05/30/24 18:20 Respiratory Rate 20 05/30/24 18:20 Blood Pressure 101/69 05/30/24 18:20 Pulse Oximetry 98 05/30/24 18:20 Oxygen Deliv
== END 2024-05-30 23:36 | disposition home or self-care (01) ==
PROVIDERS: Emergency Provider Emergency Medicine; PCP Internal Medicine
DX: K59.00 Constipation, unspecified (principal)
CPT/HCPCS: 36415; 80053; 83690; 85025; 99283

== ENCOUNTER 2024-06-15 11:41 | Inpatient (IN) | payer OTHER, SELFPAY ==
[2024-06-15] VITALS (9 sets, daily range): BP systolic 119–183; BP diastolic 65–147; PULSE 80–106; RESP 16–24; TEMP 36.6–37.3; O2SAT 94–100
--- NOTE | ~2024-06-15 | XR_ITS ---
Portable chest x-ray Comparison: 06/23/2024 Clinical History: Intubated Findings: Endotracheal tube, NG tube, and right IJ line are in satisfactory positions. There is prob able bibasilar atelectasis or scarring. Cardiomediastinal silhouette is stable. Bones and soft tissu es are unremarkable. Impression: Support tubes, as above. Bibasilar atelectasis or scarring. Reviewed, dictated and finalized at location M. Impression: Support tubes, as above. Bibasilar atelectasis or scarring.
--- NOTE | ~2024-06-15 | XR_ITS ---
Portable chest x-ray Comparison: 06/22/2024 Clinical History: Tachypnea Findings: NG tube in place, side port just below the diaphragm. Probable minimal bibasilar atelectas is. Cardiomediastinal silhouette is stable. Bones and soft tissues are unremarkable. Impression: NG tube in place, as above. Minimal bibasilar atelectatic change. Reviewed, dictated and finalized at location M. Impression: NG tube in place, as above. Minimal bibasilar atelectatic change.
--- NOTE | ~2024-06-15 | XR_ITS ---
XR chest 2V 06/15/2024 13:06 Indication: Weakness Procedure: 2 view chest Comparison: 05/28/2005 Findings: Mild interstitial edema. Shallow inspiration present. No significant effusion. No pneumotho rax. No acute osseous abnormality. There are degenerative changes of the shoulders. Impression: 1: Mild interstitial edema. Reviewed, dictated and finalized at location B. Impression: 1: Mild interstitial edema.
--- NOTE | ~2024-06-15 | CT_ITS ---
EXAMINATION: CT abdomen pelvis wo con DATE: 06/18/2024 16:21 INDICATION: Abdominal pain. TECHNIQUE: Computed tomography (CT) of the abdomen and pelvis was performed without intravenous contr ast. Automated exposure control and iterative reconstruction technique were employed. The dose-length product was 836.22 mGy-cm. COMPARISON: CT abdomen and pelvis 01/09/2023 FINDINGS: The visualized portions of lung bases demonstrate bilateral atelectasis. There is a 4 mm no dule in right lung, likely benign. No pleural effusion. The heart size is normal. There are coronary artery calcifications. No pericardial effusion. The liver, gallbladder, spleen, pancreas, and adrenal glands are normal. There are cysts in the kidneys measuring up to 7.5 cm on the right. There is mild atrophy of the kidneys. There is moderate bilateral hydronephrosis. There is a 5 mm stone in right k idney. There is a 7 mm stone in left kidney. There is a 7 mm stone in the bladder. There is a Teixeira c atheter in expected position. There is a large volume of stool in the colon. There is distention of t he rectum and sigmoid with wall thickening, consistent with stercoral colitis. There is no lymphadeno trent or ascites. There is chronic height loss of multiple vertebral bodies. IMPRESSION: 1. Stercoral colitis. 2. Moderate bilateral hydronephrosis secondary to the distended distal colon. Reviewed, dictated and finalized at location A.
--- NOTE | ~2024-06-15 | XR_ITS ---
Portable chest x-ray Comparison: 06/15/2024 Clinical History: Vomiting Findings: There is mild bibasilar interstitial prominence. Cardiomediastinal silhouette is stable. Bones and soft tissues are unremarkable. Impression: Mild interstitial edema versus mild chronic interstitial disease at the lung bases. Reviewed, dictated and finalized at [facility]. Impression: Mild interstitial edema versus mild chronic interstitial disease at the lung ba ses.
--- NOTE | ~2024-06-15 | US_ITS ---
EXAMINATION: US venous doppler [facility] DATE: 06/15/2024 22:25 INDICATION: Lower limb pain and swelling. TECHNIQUE: Grayscale ultrasound images without and with compression and Doppler ultrasound images of the bilateral lower extremity veins were obtained. COMPARISON: None. FINDINGS: The visualized portions of right common femoral vein, profunda (deep) femoral vein, femoral vein, pop liteal vein, peroneal veins, posterior tibial veins, and greater saphenous vein outflow are patent. The visualized portions of left profunda femoral vein and greater saphenous vein outflow are patent. There is thrombus in left common femoral, femoral, and popliteal veins. The calf veins are not well e valuated. IMPRESSION: 1. Deep vein thrombosis involving the left common femoral, femoral, and popliteal veins. I called th is result to Barbara Heller. Reviewed, dictated and finalized at location A. IMPRESSION: 1. Deep vein thrombosis involving the left common femoral, femoral, and poplit eal veins. I called this result to Barbara Heller.
--- NOTE | ~2024-06-15 | XR_ITS ---
Upright portable views of the abdomen Clinical history: NG tube placement Findings: NG tube in place, side port just below the diaphragm. Bowel gas pattern is unchanged. No fr ee air. No abnormal mass lesion or calcification is seen. Osseous structures are intact. Impression: NG tube side port just below the diaphragm. Stable bowel gas pattern. Reviewed, dictated and finalized at [facility]. Impression: NG tube side port just below the diaphragm. Stable bowel gas pattern.
--- NOTE | ~2024-06-15 | XR_ITS ---
EXAMINATION: XR abdomen/kub 1V DATE: 06/20/2024 14:43 INDICATION: Stool impaction TECHNIQUE: A supine view of the abdomen on 2 radiographs was obtained. COMPARISON: CT dated 06/18/2024 FINDINGS: There is a persistent large amount of colonic stool predominantly in the sigmoid colon which extends cephalad into the right upper quadrant below the diaphragm and distally fills the pelvis with 13.3 si milar ball of stool at the rectum. No dilated loops of gas-filled small bowel to suggest obstruction. Mild discoid atelectasis at the left lung base. Heart size is normal. IMPRESSION: 1. Persistent large amount of predominantly distal colonic stool consistent with fecal impaction and constipation. Reviewed, dictated and finalized at location A. IMPRESSION: 1. Persistent large amount of predominantly distal colonic stool consistent wit h fecal impaction and constipation.
--- NOTE | ~2024-06-15 | XR_ITS ---
Portable chest x-ray Comparison: 06/17/2024 Clinical History: Fever, weakness Findings: NG tube in satisfactory position. Probable right basilar atelectatic change. Left lung martha ar. Cardiomediastinal silhouette is stable. Bones and soft tissues are unremarkable. Impression: NG tube in place. Probable minimal right basilar atelectatic change. Reviewed, dictated and finalized at location . Impression: NG tube in place. Probable minimal right basilar atelectatic change.
--- NOTE | ~2024-06-15 | XR_ITS ---
Upright portable view of the abdomen Clinical history: NG tube placement Findings: NG tube tip is in the distal esophagus. Dilated small bowel loops noted in the upper abdome n. No free air seen. No abnormal mass lesion or calcification is seen. Osseous structures are intact. Impression: NG tube is at the distal esophagus. Further advancement by at least 15 cm advised. Possible ileus versus small bowel obstruction. Reviewed, dictated and finalized at location . Impression: NG tube is at the distal esophagus. Further advancement by at least 15 cm advis ed. Possible ileus versus small bowel obstruction.
--- NOTE | ~2024-06-15 | XR_ITS ---
EXAMINATION: XR chest ET placement, XR abdomen gastric tube insert DATE: 06/23/2024 14:48 INDICATION: Endotracheal tube placement. Central line insertion. Nasogastric tube placement. TECHNIQUE: 1. Portable AP semierect view of the chest was obtained. 2. Portable AP supine view of the abdomen was obtained. COMPARISON: Chest radiograph date at 10:26 AM FINDINGS: Chest: Endotracheal tube tip 2.9 cm above the alyssa. Right internal jugular central venous catheter with di stal tip at the superior cavoatrial junction. Persistent airspace opacities at the bilateral lung bas es which could represent atelectasis or pneumonia. No pleural effusion or pneumothorax. Heart size wi thin normal limits for AP technique. Abdomen: Nasogastric tube tip in proximal side port in the body the stomach. Gas and stool in the visualized colon in the upper abdomen. No dilated loops of small bowel to suggest obstruction. IMPRESSION: 1. Lines and tubes in expected positions as detailed above. 2. Persistent opacities at the bilateral lung bases which could represent atelectasis or pneumonia. Reviewed, dictated and finalized at location A. IMPRESSION: 1. Lines and tubes in expected positions as detailed above. 2. Persistent opacities at the bilateral lung bases which could represent atele ctasis or pneumonia.
--- NOTE | ~2024-06-15 | CT_ITS ---
CT ANGIOGRAM NECK AND HEAD History: Right deviation, altered mental status. Technique: Serial spiral axial images through the head and neck were obtained during arterial phase I V injection of 100 cc of Omnipaque 350. 3-D postprocessing and MIP images were then reconstructed on the remote workstation. Dose reduction technique was used on this scan by utilizing automated exposur e control and iterative reconstruction technique. The dose-length product (DLP) was 1143.69 mGy-cm. CTA neck findings: Bilateral vertebral arteries are patent. Bilateral common carotid, internal carot id, and external carotid arteries are patent. No significant stenosis. No large vessel occlusion. No aneurysm evident. The proximal right internal carotid artery demonstrates 0% stenosis relative to the normal distal artery lumen diameter. The proximal left internal carotid artery demonstrates 0% steno sis relative to the normal distal artery lumen diameter. Segmental level pulmonary emboli in the upper lobes. CTA head findings: Distal vertebral arteries, basilar artery, and posterior cerebral arteries are pat ent. Distal internal carotid arteries, middle cerebral arteries, and anterior cerebral arteries are p atent. No large vessel occlusion. No stenosis or aneurysm. Impression: No significant abnormality of the cervical or intracranial vasculature evident. Segmental level pulmonary emboli again noted in the upper lobes. Please refer to separately reported chest CT for further details. Reviewed, dictated and finalized at location . Impression: No significant abnormality of the cervical or intracranial vasculature evident. Segmental level pulmonary emboli again noted in the upper lobes. Please refer t o separately reported chest CT for further details.
--- NOTE | ~2024-06-15 | CT_ITS ---
EXAMINATION: CT brain wo con DATE: 06/15/2024 15:53 INDICATION: Weakness. TECHNIQUE: Computed tomography (CT) of the head was performed without intravenous contrast. The mA wa s adjusted according to patient size. Iterative reconstruction technique was employed. The dose-lengt h product was 1059.33 mGy-cm. COMPARISON: Head CT 01/09/2023 FINDINGS: There are scattered areas of low attenuation in the cerebral white matter. There is no intr acranial hemorrhage, acute infarction, or abnormal intracranial mass lesion. The ventricles are eran l in size. The orbits are normal. The paranasal sinuses are clear. There is a small right mastoid eff usion. There is cerumen in the external auditory canals. IMPRESSION: 1. Stable moderate nonspecific cerebral white matter disease, which likely represents chronic small v essel ischemic disease. Reviewed, dictated and finalized at location A. IMPRESSION: 1. Stable moderate nonspecific cerebral white matter disease, which likely repr esents chronic small vessel ischemic disease.
--- NOTE | ~2024-06-15 | CT_ITS ---
Clinical Indication: Sepsis, abdominal distention CT Scan of the Chest, Abdomen, and Pelvis with Contrast: Technique: Contiguous sections were acquired throughout the chest, abdomen, and pelvis after intraven ous administration of 100 cc of Omnipaque 350. Dose reduction technique was used on this scan by tulio adame automated exposure control and iterative reconstruction technique. The dose-length product (DL P) was 1559.85 mGy-cm. COMPARISON: 06/18/2024 Findings: There is no evidence of any significant mediastinal, hilar or axillary lymphadenopathy. The mediastin al soft tissues appear normal. Motion artifact somewhat limits evaluation, but there are probable mul tiple segmental level pulmonary emboli throughout both lungs. There is mild reversal of the RV/LV rat io. There is no evidence of pleural or pericardial effusion. There is probable mild bibasilar atelectatic change. Motion artifact limits for small pulmonary nodul es, no gross pulmonary abnormality seen otherwise. The liver, spleen, pancreas, gallbladder, and adrenal glands are within normal limits. Multiple bilat eral renal cysts are present. There is moderate bilateral hydronephrosis. 4 mm nonobstructing left re nal stone present. There are focal cystic lesions in the left upper quadrant, nonspecific, but possib ly representing pancreatic lesions, largest measuring 2.8 cm (axial image 19 for example). There are atherosclerotic calcifications of the aorta. No lymphadenopathy. There is marked distention of the sigmoid colon and rectum with stool, with mild wall thickening of t hese portions of the large bowel. There is large amount of stool in the remainder of the colon which is relatively normal in caliber otherwise. There is mild inflammatory change about the distal rectum. Teixeira catheter in place in the urinary bladder, which is collapsed with air within it. 7 mm bladder s tone present. No pelvic mass evident otherwise. No ascites. Chronic compression fracture of L4 noted. Impression: Multiple segmental level pulmonary emboli bilaterally, with mild reversal of the RV/LV ratio, suggest ing right heart strain. Marked stool distention of the sigmoid colon and rectum with wall thickening and mild surrounding inf lammatory change at the rectum. Findings are compatible with severe fecal impaction and constipation with stercoral proctitis. Correlate clinically for toxic megacolon. No free air evident. Benign appearing cystic lesions in the pancreatic tail left upper quadrant. Moderate bilateral hydronephrosis. Nonobstructing left renal stone and urinary bladder stone are unch anged. Reviewed, dictated and finalized at location M. Impression: Multiple segmental level pulmonary emboli bilaterally, with mild reversal of th e RV/LV ratio, suggesting right heart strain. Marked stool distention of the sigmoid colon and rectum with wall thickening an d mild surrounding inflammatory change at the rectum. Findings are compatible w ith severe fecal impaction and constipation with stercoral proctitis. Correlate clinically for toxic megacolon. No free air evident. Benign appearing cystic lesions in the pancreatic tail left upper quadrant. Moderate bilateral hydronephrosis. Nonobstructing left renal stone and urinary bladder stone are unchanged.
--- NOTE | ~2024-06-15 | XR_ITS ---
Portable chest x-ray Comparison: 06/23/2024 at 1:01 AM Clinical History: Shortness of breath Findings: NG tube in satisfactory position. There is worsening discoid right basilar presumed atelec tasis. There is possible minimal bibasilar pulmonary edema. Cardiomediastinal silhouette is stable. Bones and soft tissues are unremarkable. Impression: Worsening probable discoid right basilar atelectasis and possible minimal bibasilar pulmonary edema. NG tube in place. Reviewed, dictated and finalized at location M. Impression: Worsening probable discoid right basilar atelectasis and possible minimal bibas ilar pulmonary edema. NG tube in place.
--- NOTE | ~2024-06-15 | CT_ITS ---
CT head without contrast Indication: Altered mental status COMPARISON: 06/15/2024 Technique: Serial scans were obtained through the brain without the administration of contrast. Dose reduction technique was used on this scan by utilizing automated exposure control and iterative recon struction technique. The dose-length product (DLP) was 681.00 mGy-cm. Findings: There is no evidence of intracranial hemorrhage, mass lesion, or acute infarct. The ventri cles and subarachnoid spaces are dilated, consistent with moderate atrophy. Low attenuation regions are seen within the periventricular white matter bilaterally, likely representing changes from chroni c microvascular ischemic disease. There is no evidence of edema, mass effect or midline shift. The visualized paranasal sinuses and mastoid air cells are clear. Impression: No intracranial hemorrhage, mass, or acute infarct. Atrophy and chronic white matter changes, as above. Reviewed, dictated and finalized at location . Impression: No intracranial hemorrhage, mass, or acute infarct. Atrophy and chronic white matter changes, as above.
--- NOTE | ~2024-06-15 | XR_ITS ---
EXAMINATION: XR abdomen gastric tube rechec DATE: 06/22/2024 15:18 INDICATION: Nasogastric tube recheck TECHNIQUE: A supine view of the abdomen and lower chest was obtained for evaluation of feeding tube placement. COMPARISON: 06/21/2024 FINDINGS: Nasogastric tube tip in proximal side port remain in the body the stomach. There is residual gas and stool throughout the visualized colon in the upper abdomen. Linear atelectasis/scarring at the bilate ral lung bases with mild elevation the left hemidiaphragm. Heart size is normal. IMPRESSION: 1. Nasogastric tube in the stomach. Reviewed, dictated and finalized at location A.
--- NOTE | 2024-06-15 12:07 | ECG_ITS ---
Test Date: 2024-06-15 12:42:01 Measurements Intervals [place] Rate: 104 P: -67 AR: 160 QRS: 67 QRSD: 118 T: -5 QT: 336 QTc: 442 Interpretive Statements ECTOPIC ATRIAL TACHYCARDIA MODERATE INTRAVENTRICULAR CONDUCTION DELAY [110+ ms QRS DURATION] NONSPECIFIC ST AND T-WAVE ABNORMALITY No previous ECG available for comparison Electronically Signed On 06-16-2024 15:25:22 CDT by Edie Talavera M.D.
[2024-06-15 12:37] LABS: Basophils Percent Auto 0.4 % (0.2-1.2); Eosinophils Percent Auto 0.3 % (0-4.4); Hematocrit 34.2 % (42.0-52.0); Immature Granulocyte Absolute 0.04 K/mm3 (0.00-0.031); Immature Granulocyte Percent A 0.4 % (0-0.5); Lymphocytes Absolute Auto 0.51 K/mm3 (0.9-3.2); Lymphocytes Percent Auto 5.1 % (18.3-44.2); Mean Corpuscular HGB Conc 32.2 g/dl (32-36); Mean Corpuscular Hemoglobin 28.3 pg (26-34); Mean Corpuscular Volume 87.9 fl (80-100); Mean Platelet Volume 10.1 fl (7.4-10.4); Monocytes Absolute Auto 1.1 K/mm3 (0.1-0.6); Monocytes Percent Auto 10.9 % (2.6-8.5); Neutrophils Absolute Auto 8.2 K/mm3 (1.3-6.7); Neutrophils Percent Auto 82.9 % (45.5-73.1); Platelet Count Result 240 k/mm3 (150-375); Red Blood Count 3.89 M/mm3 (4.6-6.20); Red Cell Distribution Width 13.1 % (11.5-14.5); White Blood Count 9.9 K/mm3 (4.5-10.0)
[2024-06-15 12:52] LABS: Add Urine Microscopic? YES; Appearance Urine Clear (Clear); Bacteria Urine Rare /hpf; Bilirubin Urine 1+ (Negative); Blood Urine Negative (Negative); Color Urine Dark Yellow (Yellow); Glucose Urine UA Negative (Negative); Ketones Urine Negative (Negative); Leukocyte Esterase Ur 1+ LEU/UL (Negative); Nitrate Urine Negative (Negative); Protein Urine 1+ mg/dL (Negative); Specific Grav Ur 1.013 (1.001-1.035); Squamous Epithelial Cell Urine None Seen /hpf (Few)
[2024-06-15 12:55] LABS: Lactic Acid Reflex 1.8 mmol/L (0.7-2.0)
[2024-06-15 12:56] LABS: Alanine Aminotransferase 22 U/L (6-50); Albumin Level 3.6 g/dL (3.5-5.1); Alkaline Phosphatase 185 U/L (38-126); Anion Gap 13 mmol/L (4-12); Aspartate Amino Transferase 35 U/L (17-59); Blood Urea Nitrogen 25 mg/dL (9-20); Calcium 8.2 mg/dL (8.4-10.2); Carbon Dioxide 25 mmol/L (22-30); Chloride 93 mmol/L (98-107); Estimated CRCL calculation 53 ml/min; Estimated Glomerular Filt Rate 59; Glucose 131 mg/dL (65-110); Potassium 3.8 mmol/L (3.4-5.0); Sodium 131 mmol/L (137-145)
[2024-06-15 15:18] LABS: NT Pro B Type Natriuretic Pept 247 pg/mL (19.9-100)
--- NOTE | 2024-06-15 15:21 | ED.GENADULT ---
HPI - General Adult General Chief complaint: Weakness Stated complaint: weakness Time Seen by Provider: 06/15/24 11:56 Source: EMS Mode of arrival: EMS Limitations: clinical condition History of Present Illness HPI narrative: 78-year-old with a history of intellectual disability, seizure disorder this was brought in by EMS from home with a complains of unable to walk since this morning. Patient upon arrival has no headache no chest pain or shortness of breath complaints of left leg swelling . His family was at the bedside states that he usually walks Onset (ago): day(s) (1) Associated symptoms: denies other symptoms Related Data Home Medications Medication Instructions Recorded Confirmed fexofenadine 180 mg tablet 180 mg PO DAILY 04/14/20 03/12/24 (Terri Allergy) folic acid 800 mcg tablet 0.8 mg PO DAILY 02/15/21 03/12/24 mecobalamin (vitamin B12) 1,000 1,000 mcg sublingual DAILY 02/15/21 03/12/24 mcg disintegrating tablet,sublingual Allergies Allergy/AdvReac Type Severity Reaction Status Date / Time No Known Allergies Allergy Verified 03/12/24 10:00 Review of Systems Review of Systems: All systems reviewed & are unremarkable except as noted in HPI and below Constitutional: Constitutional: Reports no additional constitutional complaints Eyes: Eyes: Reports no additional eye complaints ENT: Reports system reviewed and no additional complaints, except as documented Cardiovascular: Cardiovascular: Reports no additional cardiovascular complaints Respiratory: Respiratory: Reports no additional respiratory complaints Gastrointestinal: Gastrointestinal: Reports no additional gastrointestinal complaints Genitourinary: Genitourinary: Reports no additional male genitourinary complaints Musculoskeletal: Musculoskeletal: Reports as per HPI Neurologic: Reports system reviewed and no additional complaints, except as documented [facility] Past Medical History Medical History Aortic insufficiency BMI 28.0-28.9,adult BMI 29.0-29.9,adult BMI 31.0-31.9,adult BMI 32.0-32.9,adult BMI 33.0-33.9,adult Cognitive developmental delay Colon cancer screening Elevated alkaline phosphatase level Elevated homocysteine Encounter for routine adult health examination with abnormal findings Encounter for routine adult health examination without abnormal findings Epilepsy Family history of diabetes mellitus Frequent UTI Hearing loss Heart murmur Impacted cerumen of both ears Knee pain Knee swelling Left leg swelling Lymphedema Need for influenza vaccination Pain of left calf Pedal edema UTI (urinary tract infection) Surgical History Surgical History History of repair of congenital cleft palate History of transurethral resection of prostate Family History Family History Mother Family history of diabetes mellitus in first degree relative Family history of malignant neoplasm of breast in first degree relative Diabetes mellitus Father Family history of diabetes mellitus in first degree relative Diabetes mellitus Sibling Family history of diabetes mellitus in first degree relative Diabetes mellitus Social History Social History Smoking status: Never smoker Alcohol intake: never Lack of Transportation: No Lack of Food: Never True Current Housing: I Have Housing Concerned About Future Housing: No Difficulty Paying Gas/Electric Bills: No Difficulty Paying for Meds: No Currently Unemployed: No Education: Never Attended/Kindergarten Only Difficulty w/ Childcare or Family Care: No Living arrangements: with family Occupation/Education: other Gender identity (if verbalized by the patient): Male Exam Narrative: GENERAL: Well-appearing, well-nourished, and in no acute
--- NOTE | 2024-06-15 15:42 | PC.NURSE ---
Attempted to ambulate patient per MD verbal order. Patient unable to ambulate via two assist. Patient was able to stand but had very unsteady gait with only able to take one step. MD verbally notified.
--- NOTE | 2024-06-15 16:12 | PM.IMHP ---
H&P: HPI History of Present Illness Date/Time: 06/15/24 16:12 Chief Complaint: weakness Narrative: This is a 78-year-old male with a significant past medical history of intellectual disability, seizure disorder who is brought in by EMS weakness and inability to walk x1 day. According to family patient usually is able to walk. Patient was noted to have swelling to his left leg. Patient noncontributory to history of presenting illness or past medical history due to his intellectual disability. History of presenting illness and Past Medical history was obtained from the EMR. Workup in the hospital head CT which showed stable moderate nonspecific cerebral white matter disease likely representing chronic small vessel ischemic disease. Chest x-ray showed mild interstitial edema. Initial labs showed a normal white blood cell count of 9.9, hemoglobin 11.0, sodium 131, chloride 93, proBNP 247. UA was obtained and showed 1+ urine protein, 1+ urine bilirubin, 1+ leukocytes, 3-5 urine RBC, 11-20 urine WBC, rare bacteria. Urine culture was obtained and is pending. Last urine culture reviewed from 01/09/2023 showed Enterococcus species which was pansensitive. Patient was given Tylenol, 40 mg IV push Lasix, and started on IV fluids while in the ED. Review of Systems Review of Systems: ROS unobtainable: Yes unobtainable due to medical condition PMFSH Past Medical History Medical History Aortic insufficiency BMI 28.0-28.9,adult BMI 29.0-29.9,adult BMI 31.0-31.9,adult BMI 32.0-32.9,adult BMI 33.0-33.9,adult Cognitive developmental delay Colon cancer screening Elevated alkaline phosphatase level Elevated homocysteine Encounter for routine adult health examination with abnormal findings Encounter for routine adult health examination without abnormal findings Epilepsy Family history of diabetes mellitus Frequent UTI Hearing loss Heart murmur Impacted cerumen of both ears Knee pain Knee swelling Left leg swelling Lymphedema Need for influenza vaccination Pain of left calf Pedal edema UTI (urinary tract infection) Surgical History Surgical History History of repair of congenital cleft palate History of transurethral resection of prostate Family History Family History Mother Family history of diabetes mellitus in first degree relative Family history of malignant neoplasm of breast in first degree relative Diabetes mellitus Father Family history of diabetes mellitus in first degree relative Diabetes mellitus Sibling Family history of diabetes mellitus in first degree relative Diabetes mellitus Social History Social History Smoking status: Never smoker Alcohol intake: never Substance use: never Substance use type: does not use Do You Feel Safe in your Home?: Yes Lack of Transportation: No Lack of Food: Never True Current Housing: I Have Housing Concerned About Future Housing: No Difficulty Paying Gas/Electric Bills: No Difficulty Paying for Meds: No Currently Unemployed: No Education: Don't Know Difficulty w/ Childcare or Family Care: No Living arrangements: with family Occupation/Education: other Gender identity (if verbalized by the patient): Male Spiritual care concerns: No Meds Home Medications and Allergies Home Medications Medication Instructions Recorded Confirmed Type fexofenadine 180 mg tablet 180 mg PO DAILY 04/14/20 06/15/24 History (Terri Allergy) cholecalciferol (vitamin D3) 125 125 mcg PO DAILY #30 caps 08/04/20 06/15/24 Rx mcg (5,000 unit) capsule folic acid 800 mcg tablet 0.8 mg PO DAILY 02/15/21 06/15/24 History mecobalamin (vitamin B12) 1,000 1,000 mcg sublingual DAILY 02/15/21 06/15/24 History mcg disintegrating tablet,sublin
--- NOTE | 2024-06-15 17:28 | PC.NURSE ---
Report given to NIRMALA Mason on Med Surg Unit at this time by this RN.
--- NOTE | 2024-06-15 17:47 | ADMGEN ---
This patient, Tomas Mart, was admitted to [address] [place] [address] Room 305-01. Patient/family oriented to hospital policies and general routines including ID bracelet, bed and alarms, visiting hours, pain management, procedures, bathroom and other care routines, personal items, smoking policy, room service/diet, and visiting hours. Information on how to activate the Rapid Response Team has been discussed. Patient/Family are encouraged to report perceived risks to care and to ask questions if they do not understand what they are told or what they should do.
[2024-06-15] MEDS: SODIUM CHLORIDE 0.9% IV 1,000 ML 125 ML IV CONT (18:08)
[2024-06-15] MEDS: FUROSEMIDE INJ 40 MG/4 ML VIAL IV PUSH (22:03)
--- NOTE | 2024-06-16 | ECHO_ITS ---
Patient Info Name: Tomas Mart Age: 78 years : 1945 Gender: Male Ht: 74 in Wt: 230 lbs BSA: 2.35 m2 HR: 109 bpm BP: 132 / 87 mmHg Heart Rhythm: Tachycardia Technical Quality: Fair Exam Date: 06/16/2024 11:24 AM Exam Location: Echo Lab Patient Status: Inpatient Admit Date: 06/15/2024 Staff Ordering Physician: Barbara Heller APRN Financial Services Agent: Andra Joe RDCS Attending Provider: Jah Chamorro MD Referring Physician: Pina ORTA; Exam Type: CA echo doppler color flow Study Info Indications - chf Complete two-dimensional, color flow and Doppler transthoracic echocardiogram is performed. Summary 1. Complete two-dimensional, color flow and Doppler transthoracic echocardiogram is performed. 2. Left ventricular chamber dimension is normal. 3. Left ventricular systolic function is hyperdynamic, estimated at >70%. 4. The left ventricular diastolic function is grade I diastolic dysfunction. 5. E/e' 13 is mildly elevated. 6. The aortic valve is not well visualized. Cannot determine number of aortic valve leaflets. Left Ventricle E/e' 13 is mildly elevated. Left ventricular chamber dimension is normal. Left ventricular systolic function is hyperdynamic, estimated at >70%. The left ventricular diastolic function is grade I diastolic dysfunction. Right Ventricle Right ventricular chamber dimension is normal. Right ventricular systolic function is normal. Left Atria Left atrial chamber dimension is normal. Right Atria Right atrial chamber dimension is normal. Aortic Valve The aortic valve is not well visualized. Cannot determine number of aortic valve leaflets. There is no aortic valve stenosis based on valve area and gradients. There is no aortic valve regurgitation. Pulmonic Valve The pulmonic valve is not well visualized. Mitral Valve There is no mitral valve stenosis. There is no mitral valve regurgitation. Tricuspid Valve There is no tricuspid valve regurgitation. Pericardium/Pleural There is no pericardial effusion. Inferior Vena Cava Normal inferior vena cava with >50% collapse upon inspiration consistent with normal right atrial pressure, 5 mmHg. Aorta The aortic root size at the sinus of Valsalva is normal. Left Ventricular Outflow Tract Name Value Normal LVOT 2D LVOT Diameter 2.0 cm LVOT Doppler LVOT Peak Gradient 7 mmHg LVOT Mean Gradient 4 mmHg LVOT VTI 17 cm LVOT VTI/AV VTI Ratio 0.9 LVOT Stroke Volume 54 ml LVOT CO 5.3 l/min LVOT CI 2.2 l/min/m2 Mitral Valve Name Value Normal MV Doppler MV Decel Dillon 607 cm/s2 MV PHT 33 ms MV Area (PHT) 6.7 cm2 4.0-5.0 MV Diastolic Function
[2024-06-16] MEDS: APIXABAN 5 MG TABLET 10 MG PO ×3 (00:34→20:17)
[2024-06-16 06:05] VITALS: BP 147/83; PULSE 105; RESP 20; TEMP 37.1; O2SAT 94
[2024-06-16 08:11] LABS: Basophils Absolute Auto 0.1 K/mm3 (0.0-0.1); Basophils Percent Auto 0.6 % (0.2-1.2); Eosinophils Percent Auto 0.4 % (0-4.4); Hematocrit 33.2 % (42.0-52.0); Immature Granulocyte Absolute 0.04 K/mm3 (0.00-0.031); Immature Granulocyte Percent A 0.5 % (0-0.5); Lymphocytes Percent Auto 7.2 % (18.3-44.2); Mean Corpuscular HGB Conc 33.1 g/dl (32-36); Mean Corpuscular Hemoglobin 28.6 pg (26-34); Mean Corpuscular Volume 86.2 fl (80-100); Mean Platelet Volume 10.4 fl (7.4-10.4); Monocytes Absolute Auto 1.3 K/mm3 (0.1-0.6); Monocytes Percent Auto 15.9 % (2.6-8.5); Neutrophils Absolute Auto 6.2 K/mm3 (1.3-6.7); Neutrophils Percent Auto 75.4 % (45.5-73.1); Platelet Count Result 273 k/mm3 (150-375); Red Blood Count 3.85 M/mm3 (4.6-6.20); Red Cell Distribution Width 13.1 % (11.5-14.5); White Blood Count 8.3 K/mm3 (4.5-10.0)
[2024-06-16 08:12] VITALS: O2SAT 95
[2024-06-16 08:17] LABS: Alanine Aminotransferase 22 U/L (6-50); Albumin Level 3.3 g/dL (3.5-5.1); Alkaline Phosphatase 182 U/L (38-126); Anion Gap 14 mmol/L (4-12); Aspartate Amino Transferase 33 U/L (17-59); Blood Urea Nitrogen 29 mg/dL (9-20); Calcium 8.1 mg/dL (8.4-10.2); Carbon Dioxide 22 mmol/L (22-30); Chloride 96 mmol/L (98-107); Estimated CRCL calculation 50 ml/min; Estimated Glomerular Filt Rate 54; Glucose 118 mg/dL (65-110); Potassium 3.5 mmol/L (3.4-5.0); Sodium 132 mmol/L (137-145)
--- NOTE | 2024-06-16 09:47 | PM.IMPN ---
Progress Note: A&P Assessment and Plan (1) DVT (deep venous thrombosis): Code(s): I82.409 - Acute embolism and thrombosis of unspecified deep veins of unspecified lower extremity Status: Acute Assessment and Plan: 06/15/24: Venous Doppler positive for DVT Patient started on Eliquis 10 mg b.i.d. for 7 days, then switch to 5 mg b.i.d. per DVT protocol (2) Left leg swelling: Code(s): M79.89 - Other specified soft tissue disorders Status: Acute Assessment and Plan: See above (3) UTI (urinary tract infection): Qualifiers: Hematuria presence: without hematuria Urinary tract infection type: site unspecified Qualified Code(s): N39.0 - Urinary tract infection, site not specified Code(s): N39.0 - Urinary tract infection, site not specified Status: Acute Assessment and Plan: 06/16/24: UA, 3-5 urine RBC, 11-20 urine WBC, rare bacteria. Urine culture obtained and pending Straight cath at home, currently on Teixeira. Patient has history of frequent UTIs Will start Rocephin (4) Weakness: Code(s): R53.1 - Weakness Status: Acute Assessment and Plan: 06/16/24: Likely secondary to DVT Reporting not being able to walk since this morning No compromise on respiratory, if needed will order CTA PT and OT ordered (5) Seizure disorder: Code(s): G40.909 - Epilepsy, unspecified, not intractable, without status epilepticus Status: Chronic Assessment and Plan: 06/16/24: Continue primidone and phenytoin (6) BPH (benign prostatic hyperplasia): Code(s): N40.0 - Benign prostatic hyperplasia without lower urinary tract symptoms Status: Acute Assessment and Plan: 06/16/24: Continue Finasteride 5 mg tablet daily Subjective Date/time seen: 06/16/24 09:47 Interval history: Patient was examined at the bedside. Patient's sister provided the history since the patient has intellectual disability. Patient was diagnosed with acute DVT on the left leg and started on apixaban 10 mg p.o. b.i.d. for 10 days. Currently patient has no respiratory issues. If warrants will do CTA. Patient was initially admitted due to the weakness. Urine culture is pending. Patient's sister reports she does straight cath every day at home. The left leg swelling has been chronic for about 6 months ago but venous Doppler done on shows no DVT. Review of Systems Review of Systems: All systems reviewed & are unremarkable except as noted in HPI and below ROS unobtainable: Yes unobtainable due to medical condition Constitutional: Constitutional: Reports as per HPI and Reports no additional constitutional complaints Eyes: Eyes: Reports as per HPI and Reports no additional eye complaints ENT: Reports system reviewed and no additional complaints, except as documented and Reports as per HPI Cardiovascular: Cardiovascular: Reports as per HPI and Reports no additional cardiovascular complaints Respiratory: Respiratory: Reports as per HPI and Reports no additional respiratory complaints Gastrointestinal: Gastrointestinal: Reports as per HPI and Reports no additional gastrointestinal complaints Genitourinary: Genitourinary: Reports no additional male genitourinary complaints and Reports as per HPI Musculoskeletal: Musculoskeletal: Reports no additional musculoskeletal complaints and Reports as per HPI Integumentary/Breasts: Skin/Breast: Reports system reviewed and no additional complaints, except as docu and Reports as per HPI Neurologic: Reports system reviewed and no additional complaints, except as documented and Reports as per HPI Psychiatric: Psychiatric: Reports no additional psychiatric complaints and Reports as per HPI Exam Narrative: General: In no acute distress, well nourished Head: atraumatic, no encephalopathy Eyes: EOMI, PERRLA, sclera clear ENT: moist mucous membranes, nasal passages clear Neck: supple, no JVD, no adenopath
[2024-06-16] MEDS: CHOLECALCIFEROL 5,000 UNITS TABLET 5000 UNITS PO (10:38)
[2024-06-16] MEDS: FINASTERIDE 5 MG TABLET PO (10:38)
[2024-06-16] MEDS: FUROSEMIDE INJ 40 MG/4 ML VIAL IV PUSH ×2 (10:39→20:18)
[2024-06-16] MEDS: PHENYTOIN SODIUM 100 MG EXTENDED RELEASE CAP 200 MG PO ×2 (11:52→17:54)
[2024-06-16] MEDS: PRIMIDONE 250 MG TABLET PO ×2 (11:54→18:14)
[2024-06-16 14:00] VITALS: BP 145/78; PULSE 106; RESP 14; TEMP 37.3; O2SAT 94
[2024-06-16 20:57] VITALS: BP 133/81; PULSE 88; RESP 18; TEMP 37.6; O2SAT 92
[2024-06-17] MEDS: ONDANSETRON INJ 4 MG/2 ML VIAL IV PUSH (03:44)
[2024-06-17 05:31] VITALS: BP 110/66; PULSE 88; RESP 18; TEMP 37.2; O2SAT 91
[2024-06-17] MEDS: ACETAMINOPHEN 325 MG TABLET 650 MG PO (06:13)
[2024-06-17 06:52] LABS: Alanine Aminotransferase 25 U/L (6-50); Albumin Level 3.1 g/dL (3.5-5.1); Alkaline Phosphatase 202 U/L (38-126); Anion Gap 16 mmol/L (4-12); Aspartate Amino Transferase 45 U/L (17-59); Bilirubin,Total 0.9 mg/dL (0.2-1.3); Blood Urea Nitrogen 42 mg/dL (9-20); Calcium 8.4 mg/dL (8.4-10.2); Carbon Dioxide 24 mmol/L (22-30); Chloride 94 mmol/L (98-107); Estimated CRCL calculation 43 ml/min; Estimated Glomerular Filt Rate 45; Glucose 155 mg/dL (65-110); Potassium 4.1 mmol/L (3.4-5.0); Sodium 134 mmol/L (137-145)
[2024-06-17] MEDS: APIXABAN 5 MG TABLET 10 MG PO ×2 (08:01→21:05)
[2024-06-17] MEDS: FINASTERIDE 5 MG TABLET PO (08:01)
[2024-06-17] MEDS: PHENYTOIN SODIUM 100 MG EXTENDED RELEASE CAP 200 MG PO ×2 (08:01→16:02)
[2024-06-17] MEDS: CHOLECALCIFEROL 5,000 UNITS TABLET 5000 UNITS PO (08:01)
[2024-06-17] MEDS: FUROSEMIDE INJ 40 MG/4 ML VIAL IV PUSH ×2 (08:01→21:05)
[2024-06-17] MEDS: PRIMIDONE 250 MG TABLET PO ×3 (08:01→16:02)
[2024-06-17 08:59] LABS: Basophils Absolute Auto 0.1 K/mm3 (0.0-0.1); Basophils Percent Auto 0.5 % (0.2-1.2); Eosinophils Percent Auto 0.1 % (0-4.4); Hematocrit 33.9 % (42.0-52.0); Hemoglobin 11.6 g/dL (14.0-18.0); Immature Granulocyte Absolute 0.03 K/mm3 (0.00-0.031); Immature Granulocyte Percent A 0.3 % (0-0.5); Lymphocytes Absolute Auto 1.06 K/mm3 (0.9-3.2); Lymphocytes Percent Auto 11.5 % (18.3-44.2); Mean Corpuscular HGB Conc 34.2 g/dl (32-36); Mean Corpuscular Hemoglobin 29.1 pg (26-34); Mean Platelet Volume 10.4 fl (7.4-10.4); Monocytes Absolute Auto 1.5 K/mm3 (0.1-0.6); Monocytes Percent Auto 15.7 % (2.6-8.5); Neutrophils Absolute Auto 6.7 K/mm3 (1.3-6.7); Neutrophils Percent Auto 71.9 % (45.5-73.1); Platelet Count Result 315 k/mm3 (150-375); Red Blood Count 3.99 M/mm3 (4.6-6.20); Red Cell Distribution Width 13.2 % (11.5-14.5); White Blood Count 9.3 K/mm3 (4.5-10.0)
[2024-06-17 14:00] VITALS: BP 139/80; PULSE 74; RESP 18; TEMP 36.6; O2SAT 94
--- NOTE | 2024-06-17 14:59 | PM.IMPN ---
Progress Note: A&P Assessment and Plan (1) DVT (deep venous thrombosis): Code(s): I82.409 - Acute embolism and thrombosis of unspecified deep veins of unspecified lower extremity Status: Acute Assessment and Plan: 06/17/24: Venous Doppler positive for DVT Patient started on Eliquis 10 mg b.i.d. for 7 days, then switch to 5 mg b.i.d. per DVT protocol (2) Left leg swelling: Code(s): M79.89 - Other specified soft tissue disorders Status: Acute Assessment and Plan: See above (3) UTI (urinary tract infection): Qualifiers: Urinary tract infection type: site unspecified Hematuria presence: without hematuria Qualified Code(s): N39.0 - Urinary tract infection, site not specified Code(s): N39.0 - Urinary tract infection, site not specified Status: Acute Assessment and Plan: 06/17/24: UA, 3-5 urine RBC, 11-20 urine WBC, rare bacteria. Urine culture shows coag-negative staphylococcal. Straight cath at home, currently on Teixeira. Patient has history of frequent UTIs Cont Rocephin (4) Weakness: Code(s): R53.1 - Weakness Status: Acute Assessment and Plan: 06/17/24: Likely secondary to DVT Reporting not being able to walk since this morning No compromise on respiratory, if needed will order CTA PT and OT ordered (5) Seizure disorder: Code(s): G40.909 - Epilepsy, unspecified, not intractable, without status epilepticus Status: Chronic Assessment and Plan: 06/17/24: Continue primidone and phenytoin (6) BPH (benign prostatic hyperplasia): Code(s): N40.0 - Benign prostatic hyperplasia without lower urinary tract symptoms Status: Acute Assessment and Plan: 06/17/24: Continue Finasteride 5 mg tablet daily Subjective Date/time seen: 06/17/24 14:59 Interval history: Patient was examined at the bedside and currently doing well. As mentioned previously patient was diagnosed with acute DVT on the left leg and started on apixaban 10 mg p.o. b.i.d. for 10 days. Currently patient has no respiratory issues. If warrants will do CTA. Patient was initially admitted due to the weakness. Urine culture is shows coag-negative staph and we believe it might be contaminant. Continue the current antibiotic. Patient's sister reports she does straight cath every day at home. Review of Systems Review of Systems: All systems reviewed & are unremarkable except as noted in HPI and below ROS unobtainable: Yes unobtainable due to medical condition Constitutional: Constitutional: Reports as per HPI and Reports no additional constitutional complaints Eyes: Eyes: Reports as per HPI and Reports no additional eye complaints ENT: Reports system reviewed and no additional complaints, except as documented and Reports as per HPI Cardiovascular: Cardiovascular: Reports as per HPI and Reports no additional cardiovascular complaints Respiratory: Respiratory: Reports as per HPI and Reports no additional respiratory complaints Gastrointestinal: Gastrointestinal: Reports as per HPI and Reports no additional gastrointestinal complaints Genitourinary: Genitourinary: Reports no additional male genitourinary complaints and Reports as per HPI Musculoskeletal: Musculoskeletal: Reports no additional musculoskeletal complaints and Reports as per HPI Integumentary/Breasts: Skin/Breast: Reports system reviewed and no additional complaints, except as docu and Reports as per HPI Neurologic: Reports system reviewed and no additional complaints, except as documented and Reports as per HPI Psychiatric: Psychiatric: Reports no additional psychiatric complaints and Reports as per HPI Exam Narrative: General: In no acute distress, well nourished Head: atraumatic, no encephalopathy Eyes: EOMI, PERRLA, sclera clear ENT: moist mucous membranes, nasal passages clear Neck: supple, no JVD, no adenopathy, trachea midline Cardiac: Normal S1 and S2.
[2024-06-17] MEDS: AMOXICILLIN/CLAVULANATE K 875-125 MG TAB 1 TABLET PO (16:02)
[2024-06-17 20:14] VITALS: BP 129/81; PULSE 99; RESP 18; TEMP 36.5; O2SAT 94
[2024-06-17 22:04] VITALS: O2SAT 94
[2024-06-18 06:00] VITALS: BP 120/70; PULSE 103; RESP 20; TEMP 36.3; O2SAT 94
[2024-06-18 06:36] LABS: Basophils Absolute Auto 0.1 K/mm3 (0.0-0.1); Basophils Percent Auto 0.8 % (0.2-1.2); Eosinophils Percent Auto 0.1 % (0-4.4); Hematocrit 37.9 % (42.0-52.0); Hemoglobin 12.6 g/dL (14.0-18.0); Immature Granulocyte Absolute 0.04 K/mm3 (0.00-0.031); Immature Granulocyte Percent A 0.5 % (0-0.5); Lymphocytes Absolute Auto 0.78 K/mm3 (0.9-3.2); Mean Corpuscular HGB Conc 33.2 g/dl (32-36); Mean Corpuscular Hemoglobin 28.4 pg (26-34); Mean Corpuscular Volume 85.6 fl (80-100); Mean Platelet Volume 10.5 fl (7.4-10.4); Monocytes Absolute Auto 1.2 K/mm3 (0.1-0.6); Monocytes Percent Auto 15.2 % (2.6-8.5); Neutrophils Absolute Auto 5.7 K/mm3 (1.3-6.7); Neutrophils Percent Auto 73.4 % (45.5-73.1); Platelet Count Result 377 k/mm3 (150-375); Red Blood Count 4.43 M/mm3 (4.6-6.20); Red Cell Distribution Width 13.2 % (11.5-14.5); White Blood Count 7.8 K/mm3 (4.5-10.0)
[2024-06-18 06:49] LABS: Alanine Aminotransferase 28 U/L (6-50); Albumin Level 3.3 g/dL (3.5-5.1); Alkaline Phosphatase 203 U/L (38-126); Anion Gap 17 mmol/L (4-12); Aspartate Amino Transferase 46 U/L (17-59); Bilirubin,Total 1.1 mg/dL (0.2-1.3); Blood Urea Nitrogen 52 mg/dL (9-20); Calcium 8.2 mg/dL (8.4-10.2); Carbon Dioxide 23 mmol/L (22-30); Chloride 94 mmol/L (98-107); Estimated CRCL calculation 38 ml/min; Estimated Glomerular Filt Rate 39; Glucose 126 mg/dL (65-110); Sodium 134 mmol/L (137-145)
[2024-06-18] MEDS: CHOLECALCIFEROL 5,000 UNITS TABLET 5000 UNITS PO (08:01)
[2024-06-18] MEDS: AMOXICILLIN/CLAVULANATE K 875-125 MG TAB 1 TABLET PO ×2 (08:01→16:58)
[2024-06-18] MEDS: FUROSEMIDE INJ 40 MG/4 ML VIAL IV PUSH (08:01)
[2024-06-18] MEDS: PHENYTOIN SODIUM 100 MG EXTENDED RELEASE CAP 200 MG PO ×2 (08:01→16:58)
[2024-06-18] MEDS: APIXABAN 5 MG TABLET 10 MG PO ×2 (08:01→20:35)
[2024-06-18] MEDS: PRIMIDONE 250 MG TABLET PO ×3 (08:01→16:58)
[2024-06-18] MEDS: FINASTERIDE 5 MG TABLET PO (08:01)
[2024-06-18] MEDS: ONDANSETRON INJ 4 MG/2 ML VIAL IV PUSH (09:25)
--- NOTE | 2024-06-18 12:11 | PC.NURSE ---
pt c/o abd pain this am. pt sister at bedside also stated pt in pain. brought my concerns this am to MD about pt having abd pain when ambulating and upon palpation. md states he will look into in. no new orders at this time
[2024-06-18 14:00] VITALS: BP 125/71; PULSE 55; RESP 20; TEMP 36.9; O2SAT 95
--- NOTE | 2024-06-18 15:05 | PM.IMPN ---
Progress Note: A&P Assessment and Plan (1) DVT (deep venous thrombosis): Code(s): I82.409 - Acute embolism and thrombosis of unspecified deep veins of unspecified lower extremity Status: Acute Assessment and Plan: 06/18/24: Venous Doppler positive for DVT Patient started on Eliquis 10 mg b.i.d. for 7 days, then switch to 5 mg b.i.d. per DVT protocol (2) Left leg swelling: Code(s): M79.89 - Other specified soft tissue disorders Status: Acute Assessment and Plan: See above (3) UTI (urinary tract infection): Qualifiers: Hematuria presence: without hematuria Urinary tract infection type: site unspecified Qualified Code(s): N39.0 - Urinary tract infection, site not specified Code(s): N39.0 - Urinary tract infection, site not specified Status: Acute Assessment and Plan: 06/18/24: UA, 3-5 urine RBC, 11-20 urine WBC, rare bacteria. Urine culture shows coag-negative staphylococcal. Straight cath at home, currently on Teixeira. Patient has history of frequent UTIs Cr 1.5 > 1.7 Started Amox-Clav (4) Weakness: Code(s): R53.1 - Weakness Status: Acute Assessment and Plan: 06/18/24: Likely secondary to DVT Reporting not being able to walk since this morning No compromise on respiratory, if needed will order CTA PT and OT ordered (5) Seizure disorder: Code(s): G40.909 - Epilepsy, unspecified, not intractable, without status epilepticus Status: Chronic Assessment and Plan: 06/18/24: Continue primidone and phenytoin (6) BPH (benign prostatic hyperplasia): Code(s): N40.0 - Benign prostatic hyperplasia without lower urinary tract symptoms Status: Acute Assessment and Plan: 06/18/24: Continue Finasteride 5 mg tablet daily (7) Abdominal pain: Code(s): R10.9 - Unspecified abdominal pain Status: Acute Assessment and Plan: Ordered CT abd/pelvis Subjective Date/time seen: 06/18/24 15:05 Interval history: Patient complains of abdominal pain. Ordered CT scan without contrast. Patient creatinine has been increased to 1.5-1.7. Today patient has been changed to oral antibiotic amoxicillin/clav for his urinary tract infection. Review of Systems Review of Systems: All systems reviewed & are unremarkable except as noted in HPI and below ROS unobtainable: Yes unobtainable due to medical condition Constitutional: Constitutional: Reports as per HPI and Reports no additional constitutional complaints Eyes: Eyes: Reports as per HPI and Reports no additional eye complaints ENT: Reports system reviewed and no additional complaints, except as documented and Reports as per HPI Cardiovascular: Cardiovascular: Reports as per HPI and Reports no additional cardiovascular complaints Respiratory: Respiratory: Reports as per HPI and Reports no additional respiratory complaints Gastrointestinal: Gastrointestinal: Reports as per HPI and Reports no additional gastrointestinal complaints Genitourinary: Genitourinary: Reports no additional male genitourinary complaints and Reports as per HPI Musculoskeletal: Musculoskeletal: Reports no additional musculoskeletal complaints and Reports as per HPI Integumentary/Breasts: Skin/Breast: Reports system reviewed and no additional complaints, except as docu and Reports as per HPI Neurologic: Reports system reviewed and no additional complaints, except as documented and Reports as per HPI Psychiatric: Psychiatric: Reports no additional psychiatric complaints and Reports as per HPI Exam Narrative: General: In no acute distress, well nourished Head: atraumatic, no encephalopathy Eyes: EOMI, PERRLA, sclera clear ENT: moist mucous membranes, nasal passages clear Neck: supple, no JVD, no adenopathy, trachea midline Cardiac: Normal S1 and S2. No murmur, gallops or friction rubs, peripheral pulses intact. Respiratory: Lungs clear to auscultation, no adventitious
[2024-06-18] MEDS: SODIUM CHLORIDE 0.9% IV 1,000 ML 100 ML IV CONT ×2 (19:05→20:35)
[2024-06-18] MEDS: ACETAMINOPHEN 325 MG TABLET 650 MG PO (20:34)
[2024-06-18 20:55] VITALS: BP 127/88; PULSE 103; RESP 20; TEMP 36.5; O2SAT 94
[2024-06-19 06:30] VITALS: BP 129/75; PULSE 95; RESP 20; TEMP 36.3; O2SAT 94
[2024-06-19 07:13] LABS: Hematocrit 34.9 % (42.0-52.0); Hemoglobin 11.4 g/dL (14.0-18.0); Mean Corpuscular HGB Conc 32.7 g/dl (32-36); Mean Corpuscular Hemoglobin 28.1 pg (26-34); Platelet Count Result 369 k/mm3 (150-375); Red Blood Count 4.06 M/mm3 (4.6-6.20); Red Cell Distribution Width 13.4 % (11.5-14.5); White Blood Count 5.6 K/mm3 (4.5-10.0)
[2024-06-19 07:14] LABS: Basophils Absolute Auto 0.1 K/mm3 (0.0-0.1); Basophils Percent Auto 0.9 % (0.2-1.2); Eosinophils Absolute Auto 0.1 K/mm3 (0-0.3); Eosinophils Percent Auto 1.4 % (0-4.4); Immature Granulocyte Absolute 0.04 K/mm3 (0.00-0.031); Immature Granulocyte Percent A 0.7 % (0-0.5); Lymphocytes Absolute Auto 0.94 K/mm3 (0.9-3.2); Lymphocytes Percent Auto 16.8 % (18.3-44.2); Mean Platelet Volume 10.3 fl (7.4-10.4); Monocytes Absolute Auto 1.1 K/mm3 (0.1-0.6); Neutrophils Absolute Auto 3.4 K/mm3 (1.3-6.7); Neutrophils Percent Auto 60.2 % (45.5-73.1)
[2024-06-19 07:24] LABS: Alanine Aminotransferase 21 U/L (6-50); Alkaline Phosphatase 184 U/L (38-126); Anion Gap 13 mmol/L (4-12); Aspartate Amino Transferase 29 U/L (17-59); Bilirubin,Total 0.8 mg/dL (0.2-1.3); Blood Urea Nitrogen 63 mg/dL (9-20); Calcium 7.9 mg/dL (8.4-10.2); Carbon Dioxide 23 mmol/L (22-30); Chloride 95 mmol/L (98-107); Estimated CRCL calculation 43 ml/min; Estimated Glomerular Filt Rate 45; Glucose 122 mg/dL (65-110); Potassium 3.3 mmol/L (3.4-5.0); Sodium 131 mmol/L (137-145)
[2024-06-19] MEDS: PHENYTOIN SODIUM 100 MG EXTENDED RELEASE CAP 200 MG PO ×2 (08:14→17:34)
[2024-06-19] MEDS: PRIMIDONE 250 MG TABLET PO ×3 (08:14→17:34)
[2024-06-19] MEDS: FINASTERIDE 5 MG TABLET PO (08:15)
[2024-06-19] MEDS: APIXABAN 5 MG TABLET 10 MG PO ×2 (08:15→21:23)
[2024-06-19] MEDS: AMOXICILLIN/CLAVULANATE K 875-125 MG TAB 1 TABLET PO ×2 (08:15→17:34)
[2024-06-19] MEDS: CHOLECALCIFEROL 5,000 UNITS TABLET 5000 UNITS PO (08:15)
[2024-06-19] MEDS: polyethylene glycoL 3350 17 GM POWD.PACK PO ×2 (08:15→17:34)
[2024-06-19] MEDS: POTASSIUM CHLORIDE 20 MEQ PACKET (FOR LIQUID) 40 MEQ PO (10:29)
[2024-06-19 14:00] VITALS: BP 123/73; PULSE 93; RESP 18; TEMP 36.8; O2SAT 88
[2024-06-19] MEDS: SODIUM CHLORIDE 0.9% IV 1,000 ML 100 ML IV CONT (15:29)
--- NOTE | 2024-06-19 15:44 | PM.IMPN ---
Progress Note: A&P Assessment and Plan (1) DVT (deep venous thrombosis): Code(s): I82.409 - Acute embolism and thrombosis of unspecified deep veins of unspecified lower extremity Status: Acute Assessment and Plan: Venous Doppler positive for DVT Patient started on Eliquis 10 mg b.i.d. for 7 days, then switch to 5 mg b.i.d. per DVT protocol (2) Left leg swelling: Code(s): M79.89 - Other specified soft tissue disorders Status: Acute Assessment and Plan: See above (3) UTI (urinary tract infection): Qualifiers: Urinary tract infection type: site unspecified Hematuria presence: without hematuria Qualified Code(s): N39.0 - Urinary tract infection, site not specified Code(s): N39.0 - Urinary tract infection, site not specified Status: Acute Assessment and Plan: UA, 3-5 urine RBC, 11-20 urine WBC, rare bacteria. Urine culture shows coag-negative staphylococcal. Straight cath at home, currently on Teixeira. Patient has history of frequent UTIs Cr 1.5 > 1.7 Started Amox-Clav (4) Weakness: Code(s): R53.1 - Weakness Status: Acute Assessment and Plan: Likely secondary to DVT Reporting not being able to walk since this morning No compromise on respiratory, if needed will order CTA PT and OT ordered (5) Seizure disorder: Code(s): G40.909 - Epilepsy, unspecified, not intractable, without status epilepticus Status: Chronic Assessment and Plan: Continue primidone and phenytoin (6) BPH (benign prostatic hyperplasia): Code(s): N40.0 - Benign prostatic hyperplasia without lower urinary tract symptoms Status: Acute Assessment and Plan: Continue Finasteride 5 mg tablet daily (7) Abdominal pain: Code(s): R10.9 - Unspecified abdominal pain Status: Acute Assessment and Plan: Ordered CT abd/pelvis showsStercoral colitis. Subjective Date/time seen: 06/19/24 15:44 Interval history: Patient was examined at the bedside. Patient abdominal pain has been evaluated yesterday and CT was performed which shows stercoral colitis. Today we added MiraLax and sennakot in his bowel regimen. Review of Systems Review of Systems: All systems reviewed & are unremarkable except as noted in HPI and below ROS unobtainable: Yes unobtainable due to medical condition Constitutional: Constitutional: Reports as per HPI and Reports no additional constitutional complaints Eyes: Eyes: Reports as per HPI and Reports no additional eye complaints ENT: Reports system reviewed and no additional complaints, except as documented and Reports as per HPI Cardiovascular: Cardiovascular: Reports as per HPI and Reports no additional cardiovascular complaints Respiratory: Respiratory: Reports as per HPI and Reports no additional respiratory complaints Gastrointestinal: Gastrointestinal: Reports as per HPI and Reports no additional gastrointestinal complaints Genitourinary: Genitourinary: Reports no additional male genitourinary complaints and Reports as per HPI Musculoskeletal: Musculoskeletal: Reports no additional musculoskeletal complaints and Reports as per HPI Integumentary/Breasts: Skin/Breast: Reports system reviewed and no additional complaints, except as docu and Reports as per HPI Neurologic: Reports system reviewed and no additional complaints, except as documented and Reports as per HPI Psychiatric: Psychiatric: Reports no additional psychiatric complaints and Reports as per HPI Exam Narrative: General: In no acute distress, well nourished Head: atraumatic, no encephalopathy Eyes: EOMI, PERRLA, sclera clear ENT: moist mucous membranes, nasal passages clear Neck: supple, no JVD, no adenopathy, trachea midline Cardiac: Normal S1 and S2. No murmur, gallops or friction rubs, peripheral pulses intact. Respiratory: Lungs clear to auscultation, no adventitious lung sounds, currently on room air Ga
[2024-06-19] MEDS: SENNA/DOCUSATE SODIUM TABLET 1 TAB PO (21:24)
[2024-06-19 21:27] VITALS: BP 126/69; PULSE 96; RESP 20; TEMP 36.9; O2SAT 95
[2024-06-20 05:58] VITALS: BP 131/73; PULSE 71; RESP 20; TEMP 37.1; O2SAT 96
[2024-06-20 06:56] LABS: Basophils Absolute Auto 0.1 K/mm3 (0.0-0.1); Basophils Percent Auto 0.9 % (0.2-1.2); Eosinophils Absolute Auto 0.1 K/mm3 (0-0.3); Hematocrit 32.8 % (42.0-52.0); Hemoglobin 10.9 g/dL (14.0-18.0); Immature Granulocyte Absolute 0.09 K/mm3 (0.00-0.031); Immature Granulocyte Percent A 1.6 % (0-0.5); Lymphocytes Absolute Auto 0.86 K/mm3 (0.9-3.2); Lymphocytes Percent Auto 15.6 % (18.3-44.2); Mean Corpuscular HGB Conc 33.2 g/dl (32-36); Mean Corpuscular Hemoglobin 28.5 pg (26-34); Mean Corpuscular Volume 85.9 fl (80-100); Mean Platelet Volume 10.4 fl (7.4-10.4); Monocytes Absolute Auto 0.9 K/mm3 (0.1-0.6); Monocytes Percent Auto 16.5 % (2.6-8.5); Neutrophils Absolute Auto 3.5 K/mm3 (1.3-6.7); Neutrophils Percent Auto 63.4 % (45.5-73.1); Platelet Count Result 381 k/mm3 (150-375); Red Blood Count 3.82 M/mm3 (4.6-6.20); Red Cell Distribution Width 13.5 % (11.5-14.5); White Blood Count 5.5 K/mm3 (4.5-10.0)
[2024-06-20 07:09] LABS: Alanine Aminotransferase 19 U/L (6-50); Albumin Level 2.9 g/dL (3.5-5.1); Alkaline Phosphatase 178 U/L (38-126); Anion Gap 14 mmol/L (4-12); Aspartate Amino Transferase 30 U/L (17-59); Bilirubin,Total 0.7 mg/dL (0.2-1.3); Blood Urea Nitrogen 55 mg/dL (9-20); Calcium 8.1 mg/dL (8.4-10.2); Carbon Dioxide 22 mmol/L (22-30); Chloride 99 mmol/L (98-107); Estimated CRCL calculation 53 ml/min; Estimated Glomerular Filt Rate 59; Glucose 102 mg/dL (65-110); Potassium 3.1 mmol/L (3.4-5.0); Sodium 135 mmol/L (137-145)
[2024-06-20] MEDS: APIXABAN 5 MG TABLET 10 MG PO ×2 (09:44→20:11)
[2024-06-20] MEDS: PHENYTOIN SODIUM 100 MG EXTENDED RELEASE CAP 200 MG PO ×2 (09:46→18:44)
[2024-06-20] MEDS: AMOXICILLIN/CLAVULANATE K 875-125 MG TAB 1 TABLET PO (09:46)
[2024-06-20] MEDS: FINASTERIDE 5 MG TABLET PO (09:46)
[2024-06-20] MEDS: CHOLECALCIFEROL 5,000 UNITS TABLET 5000 UNITS PO (09:46)
[2024-06-20] MEDS: PRIMIDONE 250 MG TABLET PO ×3 (09:47→18:44)
[2024-06-20] MEDS: SODIUM CHLORIDE 0.9% IV 1,000 ML 100 ML IV CONT ×2 (09:47→20:24)
[2024-06-20] MEDS: polyethylene glycoL 3350 17 GM POWD.PACK PO ×2 (09:47→18:44)
[2024-06-20] MEDS: ACETAMINOPHEN 325 MG TABLET 650 MG PO (09:48)
[2024-06-20] MEDS: POTASSIUM CHLORIDE 20 MEQ ER TABLET 40 MEQ PO (13:06)
[2024-06-20] MEDS: metroNIDAZOLE 500 MG TABLET PO ×2 (13:06→20:11)
[2024-06-20 13:50] VITALS: BP 117/60; PULSE 96; RESP 20; TEMP 36.4; O2SAT 96
--- NOTE | 2024-06-20 14:59 | PM.IMPN ---
Progress Note: A&P Assessment and Plan (1) DVT (deep venous thrombosis): Code(s): I82.409 - Acute embolism and thrombosis of unspecified deep veins of unspecified lower extremity Status: Acute Assessment and Plan: Venous Doppler positive for DVT Patient started on Eliquis 10 mg b.i.d. for 7 days, then switch to 5 mg b.i.d. per DVT protocol (2) Left leg swelling: Code(s): M79.89 - Other specified soft tissue disorders Status: Acute Assessment and Plan: See above (3) UTI (urinary tract infection): Qualifiers: Hematuria presence: without hematuria Urinary tract infection type: site unspecified Qualified Code(s): N39.0 - Urinary tract infection, site not specified Code(s): N39.0 - Urinary tract infection, site not specified Status: Acute Assessment and Plan: UA, 3-5 urine RBC, 11-20 urine WBC, rare bacteria. Urine culture shows coag-negative staphylococcal. Straight cath at home, currently on Teixeira. Patient has history of frequent UTIs Cr 1.5 > 1.7 Started Amox-Clav (4) Weakness: Code(s): R53.1 - Weakness Status: Acute Assessment and Plan: Likely secondary to DVT Reporting not being able to walk since this morning No compromise on respiratory, if needed will order CTA PT and OT ordered (5) Seizure disorder: Code(s): G40.909 - Epilepsy, unspecified, not intractable, without status epilepticus Status: Chronic Assessment and Plan: Continue primidone and phenytoin (6) BPH (benign prostatic hyperplasia): Code(s): N40.0 - Benign prostatic hyperplasia without lower urinary tract symptoms Status: Acute Assessment and Plan: Continue Finasteride 5 mg tablet daily (7) Abdominal pain: Code(s): R10.9 - Unspecified abdominal pain Status: Acute Assessment and Plan: Ordered CT abd/pelvis shows Stercoral colitis. Started on Ciprofloxacin and Metronidazole Persistent large amount of predominantly distal colonic stool consistent with fecal impaction and constipation. Patient needs a manual fecal impaction. We added lactulose 20 mg b.i.d. in addition to MiraLax and Senokot. Subjective Date/time seen: 06/20/24 14:59 Interval history: Patient was examined at the bedside. Patient abdominal pain has been evaluated and CT was performed which shows stercoral colitis. Yesterday we added MiraLax and sennakot in his bowel regimen but still he does not have any bowel movement. Today we added antibiotic ciprofloxacin and metronidazole. We also ordered KUB which shows persistent large amount of predominantly distal colonic stool consistent with fecal impaction and constipation. Patient needs a manual fecal impaction. We added lactulose 20 mg b.i.d. in addition to MiraLax and Senokot. Review of Systems Review of Systems: All systems reviewed & are unremarkable except as noted in HPI and below ROS unobtainable: Yes unobtainable due to medical condition Constitutional: Constitutional: Reports as per HPI and Reports no additional constitutional complaints Eyes: Eyes: Reports as per HPI and Reports no additional eye complaints ENT: Reports system reviewed and no additional complaints, except as documented and Reports as per HPI Cardiovascular: Cardiovascular: Reports as per HPI and Reports no additional cardiovascular complaints Respiratory: Respiratory: Reports as per HPI and Reports no additional respiratory complaints Gastrointestinal: Gastrointestinal: Reports as per HPI and Reports no additional gastrointestinal complaints Genitourinary: Genitourinary: Reports no additional male genitourinary complaints and Reports as per HPI Musculoskeletal: Musculoskeletal: Reports no additional musculoskeletal complaints and Reports as per HPI Integumentary/Breasts: Skin/Breast: Reports system reviewed and no additional complaints, except as docu and Reports as per HPI Neurolog
[2024-06-20 20:00] VITALS: O2SAT 94
[2024-06-20] MEDS: CIPROFLOXACIN 500 MG TAB PO (20:10)
[2024-06-20] MEDS: SENNA/DOCUSATE SODIUM TABLET 1 TAB PO (20:11)
[2024-06-20 21:00] VITALS: BP 132/73; PULSE 100; RESP 22; TEMP 37.5; O2SAT 94
[2024-06-20] MEDS: LACTULOSE 20 GM/30 ML UDC PO (21:40)
[2024-06-21] MEDS: SODIUM CHLORIDE 0.9% IV 1,000 ML 100 ML IV CONT (05:54)
[2024-06-21] MEDS: metroNIDAZOLE 500 MG TABLET PO ×3 (05:54→21:06)
[2024-06-21 06:00] VITALS: BP 109/54; PULSE 113; RESP 22; TEMP 37.3; O2SAT 93
[2024-06-21 07:10] LABS: Basophils Absolute Auto 0.1 K/mm3 (0.0-0.1); Basophils Percent Auto 0.8 % (0.2-1.2); Hematocrit 34.4 % (42.0-52.0); Hemoglobin 11.1 g/dL (14.0-18.0); Immature Granulocyte Absolute 0.22 K/mm3 (0.00-0.031); Immature Granulocyte Percent A 2.4 % (0-0.5); Lymphocytes Absolute Auto 0.65 K/mm3 (0.9-3.2); Lymphocytes Percent Auto 7.1 % (18.3-44.2); Mean Corpuscular HGB Conc 32.3 g/dl (32-36); Mean Corpuscular Hemoglobin 28.2 pg (26-34); Mean Corpuscular Volume 87.3 fl (80-100); Mean Platelet Volume 10.6 fl (7.4-10.4); Monocytes Absolute Auto 1.2 K/mm3 (0.1-0.6); Monocytes Percent Auto 13.2 % (2.6-8.5); Neutrophils Absolute Auto 7.1 K/mm3 (1.3-6.7); Neutrophils Percent Auto 76.5 % (45.5-73.1); Platelet Count Result 435 k/mm3 (150-375); Red Blood Count 3.94 M/mm3 (4.6-6.20); Red Cell Distribution Width 13.7 % (11.5-14.5); White Blood Count 9.2 K/mm3 (4.5-10.0)
[2024-06-21 07:33] LABS: Alanine Aminotransferase 24 U/L (6-50); Albumin Level 3.1 g/dL (3.5-5.1); Alkaline Phosphatase 208 U/L (38-126); Anion Gap 13 mmol/L (4-12); Aspartate Amino Transferase 46 U/L (17-59); Bilirubin,Total 0.8 mg/dL (0.2-1.3); Blood Urea Nitrogen 49 mg/dL (9-20); Carbon Dioxide 21 mmol/L (22-30); Chloride 103 mmol/L (98-107); Estimated CRCL calculation 58 ml/min; Estimated Glomerular Filt Rate > 60; Glucose 136 mg/dL (65-110); Potassium 3.2 mmol/L (3.4-5.0); Sodium 137 mmol/L (137-145)
[2024-06-21] MEDS: LACTULOSE 20 GM/30 ML UDC PO ×2 (08:06→21:06)
[2024-06-21] MEDS: CIPROFLOXACIN 500 MG TAB PO ×2 (08:06→21:05)
[2024-06-21] MEDS: CHOLECALCIFEROL 5,000 UNITS TABLET 5000 UNITS PO (08:06)
[2024-06-21] MEDS: PRIMIDONE 250 MG TABLET PO ×3 (08:06→17:38)
[2024-06-21] MEDS: polyethylene glycoL 3350 17 GM POWD.PACK PO ×2 (08:07→17:38)
[2024-06-21] MEDS: FINASTERIDE 5 MG TABLET PO (08:07)
[2024-06-21] MEDS: PHENYTOIN SODIUM 100 MG EXTENDED RELEASE CAP 200 MG PO ×2 (08:07→17:38)
[2024-06-21] MEDS: ACETAMINOPHEN 325 MG TABLET 650 MG PO ×3 (08:07→17:39)
[2024-06-21] MEDS: APIXABAN 5 MG TABLET 10 MG PO ×2 (08:07→21:05)
--- NOTE | 2024-06-21 08:10 | PM.IMPN ---
Progress Note: A&P Assessment and Plan (1) Abdominal pain: Code(s): R10.9 - Unspecified abdominal pain Status: Acute (2) DVT (deep venous thrombosis): Code(s): I82.409 - Acute embolism and thrombosis of unspecified deep veins of unspecified lower extremity Status: Acute (3) UTI (urinary tract infection): Qualifiers: Hematuria presence: without hematuria Urinary tract infection type: site unspecified Qualified Code(s): N39.0 - Urinary tract infection, site not specified Code(s): N39.0 - Urinary tract infection, site not specified Status: Acute Plan Fecal impaction Patient abdominal pain has been evaluated and CT was performed which shows stercoral colitis. added MiraLax and sennakot in his bowel regimen but still he does not have any bowel movement. added antibiotic ciprofloxacin and metronidazole. KUB which shows persistent large amount of predominantly distal colonic stool consistent with fecal impaction and constipation. Patient needs a manual fecal impaction. start GoLYTELY a 3 L p.o. 8 oz every 20 minutes contour large bowel movement, patient cannot take oral medication. Will place NG tube to feed GoLYTELY Also Consulted GI for disimpaction with scope if patient failed GoLYTELY. Dr. Philip agreed the plan Acute metabolic encephalopathy Due to multiple comorbidities including UTI, dehydration Patient is arousable Changed to D5 normal saline 125 mL/hour Neuro check q.4 hours (1) DVT (deep venous thrombosis): Code(s): I82.409 - Acute embolism and thrombosis of unspecified deep veins of unspecified lower extremity Status: Acute Assessment and Plan: Venous Doppler positive for DVT Patient started on Eliquis 10 mg b.i.d. for 7 days, then switch to 5 mg b.i.d. per DVT protocol (2) Left leg swelling: Code(s): M79.89 - Other specified soft tissue disorders Status: Acute Assessment and Plan: See above (3) UTI (urinary tract infection): Qualifiers: Hematuria presence: without hematuria Urinary tract infection type: site unspecified Qualified Code(s): N39.0 - Urinary tract infection, site not specified Code(s): N39.0 - Urinary tract infection, site not specified Status: Acute Assessment and Plan: UA, 3-5 urine RBC, 11-20 urine WBC, rare bacteria. Urine culture shows coag-negative staphylococcal. Straight cath at home, currently on Teixeira. Patient has history of frequent UTIs Cr 1.5 > 1.7 Started Amox-Clav (4) Weakness: Code(s): R53.1 - Weakness Status: Acute Assessment and Plan: Physical deconditioning due to multiple comorbidities PT OT ordered (5) Seizure disorder: Code(s): G40.909 - Epilepsy, unspecified, not intractable, without status epilepticus Status: Chronic Assessment and Plan: Continue primidone and phenytoin(6) BPH (benign prostatic hyperplasia): Code(s): N40.0 - Benign prostatic hyperplasia without lower urinary tract symptoms Status: Acute Assessment and Plan: Continue Finasteride 5 mg tablet daily(7) Abdominal pain: Code(s): R10.9 - Unspecified abdominal pain Status: Acute Assessment and Plan: Ordered CT abd/pelvis shows Stercoral colitis. Started on Ciprofloxacin and Metronidazole Persistent large amount of predominantly distal colonic stool consistent with fecal impaction and constipation. Patient needs a manual fecal impaction. on lactulose 20 mg b.i.d. in addition to MiraLax and Senokot. Subjective Date/time seen: 06/21/24 08:10 Interval history: I saw examined the patient in presents of patient's . Patient is confused, arousable with verbal commands. Patient cannot provide history. Per patient's , patient mental status is worse. Patient does not have obvious distress. But nurse report, patient failed antibiotic treatment, patient cannot take ora
[2024-06-21] MEDS: PEG (High)/E-LYTE SOLN 4,000 ML BTL 3000 ML PO (08:55)
[2024-06-21 09:29] VITALS: BP 130/73; PULSE 115; RESP 18; TEMP 37.7; O2SAT 93
--- NOTE | 2024-06-21 10:24 | WPDGICN ---
Assessment and Plan Assessment and plan (1) Fecal impaction in rectum: Code(s): K56.41 - Fecal impaction Status: Acute Assessment and Plan: today I just performed rectal exam and removed manually large amount of impacted stool hopefully will be enough, will monitor but I anticipate that should not need endoscopy unless no results (2) Stercoral colitis: Code(s): K52.89 - Other specified noninfective gastroenteritis and colitis Status: Acute Assessment and Plan: fecal impaction no need of abx unless any complication monitor (3) Abdominal pain: Code(s): R10.9 - Unspecified abdominal pain Status: Acute (4) DVT (deep venous thrombosis): Code(s): I82.409 - Acute embolism and thrombosis of unspecified deep veins of unspecified lower extremity Status: Acute Assessment and Plan: on blood thinner (5) Cognitive developmental delay: Code(s): F81.9 - Developmental disorder of scholastic skills, unspecified Status: Acute GI Consult Note Consult date/time: 06/21/24 10:24 Reason for consult: fecal impaction HPI: Tomas Mart is a 78 year old male with history of intellectual disability, seizure disorder who was brought in by EMS weakness and inability to walk 06/15/24. History was obtained from records and family member at bedside (sister). At baseline usually is able to walk but noted swelling in his left leg. CT head showed stable moderate nonspecific cerebral white matter disease likely representing chronic small vessel ischemic disease. Chest x-ray showed mild interstitial edema. US showed DVT and now on eliquis. Labs white blood cell count of 9.9, hemoglobin 11.0, sodium 131, chloride 93, proBNP 247. UA was obtained and showed 1+ urine protein, 1+ urine bilirubin, 1+ leukocytes, 3-5 urine RBC, 11-20 urine WBC, rare bacteria. Also noted stercoral colitis with distended colon. Sister said that for last 2 years with more constipation, recent visit to ER for same few weeks ago and treated with laxatives, last colonoscopy about 10 years ago per sister who is at bedside then he had stool kit test for colon screening . He still has not had BM despite use of laxatives. Review of Systems Review of Systems: ROS unobtainable: Yes unobtainable due to mental status [facility] Past Medical History Medical History (Updated 06/22/24 @ 14:39 by Martir Combs MD) Abdominal pain Aortic insufficiency BMI 28.0-28.9,adult BMI 29.0-29.9,adult BMI 31.0-31.9,adult BMI 32.0-32.9,adult BMI 33.0-33.9,adult Cognitive developmental delay Colon cancer screening Elevated alkaline phosphatase level Elevated homocysteine Encounter for routine adult health examination with abnormal findings Encounter for routine adult health examination without abnormal findings Epilepsy Family history of diabetes mellitus Fecal impaction in rectum Frequent UTI Hearing loss Heart murmur Impacted cerumen of both ears Knee pain Knee swelling Left leg swelling Lymphedema Need for influenza vaccination Pain of left calf Pedal edema Stercoral colitis UTI (urinary tract infection) Surgical History Surgical History History of repair of congenital cleft palate History of transurethral resection of prostate Family History Family History Mother Family history of diabetes mellitus in first degree relative Family history of malignant neoplasm of breast in first degree relative Diabetes mellitus Father Family history of diabetes mellitus in first degree relative Diabetes mellitus Sibling Family history of diabetes mellitus in first degree relative Diabetes mellitus Social History Social History Smoking status: Never smoker Alcohol intake: never Substance use: never Substance use type: does not use D
[2024-06-21] MEDS: DEXTROSE 5%/0.9% SOD CHL 1,000 ML 125 ML IV CONT ×2 (13:26→21:06)
[2024-06-21 14:00] VITALS: BP 118/65; PULSE 115; RESP 20; TEMP 36.5; O2SAT 94
[2024-06-21 20:18] VITALS: BP 131/80; PULSE 113; RESP 18; TEMP 36.6; O2SAT 93
[2024-06-21] MEDS: SENNA/DOCUSATE SODIUM TABLET 1 TAB PO (21:05)
[2024-06-22 04:36] VITALS: BP 127/70; PULSE 108; RESP 18; TEMP 36.5; O2SAT 94
[2024-06-22] MEDS: metroNIDAZOLE 500 MG TABLET PO ×3 (04:53→22:02)
[2024-06-22] MEDS: DEXTROSE 5%/0.9% SOD CHL 1,000 ML 125 ML IV CONT ×2 (04:53→14:50)
[2024-06-22 05:56] LABS: Basophils Absolute Auto 0.1 K/mm3 (0.0-0.1); Basophils Percent Auto 0.6 % (0.2-1.2); Eosinophils Percent Auto 0.1 % (0-4.4); Hematocrit 34.8 % (42.0-52.0); Hemoglobin 11.3 g/dL (14.0-18.0); Immature Granulocyte Absolute 0.32 K/mm3 (0.00-0.031); Immature Granulocyte Percent A 2.2 % (0-0.5); Lymphocytes Absolute Auto 0.91 K/mm3 (0.9-3.2); Lymphocytes Percent Auto 6.4 % (18.3-44.2); Mean Corpuscular HGB Conc 32.5 g/dl (32-36); Mean Corpuscular Hemoglobin 28.5 pg (26-34); Mean Corpuscular Volume 87.7 fl (80-100); Mean Platelet Volume 10.5 fl (7.4-10.4); Monocytes Absolute Auto 1.4 K/mm3 (0.1-0.6); Neutrophils Absolute Auto 11.5 K/mm3 (1.3-6.7); Neutrophils Percent Auto 80.7 % (45.5-73.1); Platelet Count Result 416 k/mm3 (150-375); Red Blood Count 3.97 M/mm3 (4.6-6.20); Red Cell Distribution Width 14.1 % (11.5-14.5); White Blood Count 14.3 K/mm3 (4.5-10.0)
[2024-06-22 06:05] LABS: Alanine Aminotransferase 34 U/L (6-50); Albumin Level 2.9 g/dL (3.5-5.1); Alkaline Phosphatase 212 U/L (38-126); Anion Gap 11 mmol/L (4-12); Aspartate Amino Transferase 81 U/L (17-59); Bilirubin,Total 0.8 mg/dL (0.2-1.3); Blood Urea Nitrogen 50 mg/dL (9-20); Carbon Dioxide 24 mmol/L (22-30); Chloride 108 mmol/L (98-107); Estimated CRCL calculation 50 ml/min; Estimated Glomerular Filt Rate 54; Glucose 144 mg/dL (65-110); Potassium 3.4 mmol/L (3.4-5.0); Sodium 143 mmol/L (137-145)
[2024-06-22] MEDS: PHENYTOIN SODIUM 100 MG EXTENDED RELEASE CAP 200 MG PO (08:14)
[2024-06-22] MEDS: CHOLECALCIFEROL 5,000 UNITS TABLET 5000 UNITS PO (08:14)
[2024-06-22] MEDS: polyethylene glycoL 3350 17 GM POWD.PACK PO ×2 (08:14→18:21)
[2024-06-22] MEDS: FINASTERIDE 5 MG TABLET PO (08:14)
[2024-06-22] MEDS: CIPROFLOXACIN 500 MG TAB PO ×2 (08:14→22:01)
[2024-06-22] MEDS: APIXABAN 5 MG TABLET 10 MG PO ×2 (08:14→22:01)
[2024-06-22] MEDS: PRIMIDONE 250 MG TABLET PO ×3 (08:14→18:16)
[2024-06-22 08:18] LABS: Platelet Estimate Slightly Increased (Adequate)
[2024-06-22 08:19] LABS: Anisocytosis 1+; Burr Cells 1+; Schistocytes None Seen
[2024-06-22] MEDS: LACTULOSE 20 GM/30 ML UDC PO ×2 (08:23→22:02)
--- NOTE | 2024-06-22 08:24 | PM.IMPN ---
Progress Note: A&P Assessment and Plan (1) Abdominal pain: Code(s): R10.9 - Unspecified abdominal pain Status: Acute (2) DVT (deep venous thrombosis): Code(s): I82.409 - Acute embolism and thrombosis of unspecified deep veins of unspecified lower extremity Status: Acute (3) UTI (urinary tract infection): Qualifiers: Hematuria presence: without hematuria Urinary tract infection type: site unspecified Qualified Code(s): N39.0 - Urinary tract infection, site not specified Code(s): N39.0 - Urinary tract infection, site not specified Status: Acute Plan Fecal impaction Patient abdominal pain has been evaluated and CT was performed which shows stercoral colitis. added MiraLax and sennakot in his bowel regimen but still he does not have any bowel movement. added antibiotic ciprofloxacin and metronidazole. KUB which shows persistent large amount of predominantly distal colonic stool consistent with fecal impaction and constipation. Patient needs a manual fecal impaction. start GoLYTELY a 3 L p.o. 8 oz every 20 minutes contour large bowel movement, patient cannot take oral medication. Will place NG tube to feed GoLYTELY Also Consulted GI for disimpaction with scope if patient failed GoLYTELY. Dr. Philip agreed the plan 06/22. GI rec lactulose, Xr showed Stable bowel gas pattern. management per GI Acute metabolic encephalopathy Due to multiple comorbidities including UTI, dehydration Patient is arousable Changed to D5 normal saline 125 mL/hour Neuro check q.4 hours f/u ct/head no contrast DVT (deep venous thrombosis): Code(s): I82.409 - Acute embolism and thrombosis of unspecified deep veins of unspecified lower extremity Status: Acute Assessment and Plan: Venous Doppler positive for DVT Patient started on Eliquis 10 mg b.i.d. for 7 days, then switch to 5 mg b.i.d. per DVT protocol Left leg swelling: Code(s): M79.89 - Other specified soft tissue disorders Status: Acute Assessment and Plan: See above UTI (urinary tract infection): Qualifiers: Hematuria presence: without hematuria Urinary tract infection type: site unspecified Qualified Code(s): N39.0 - Urinary tract infection, site not specified Code(s): N39.0 - Urinary tract infection, site not specified Status: Acute Assessment and Plan: UA, 3-5 urine RBC, 11-20 urine WBC, rare bacteria. Urine culture shows coag-negative staphylococcal. Straight cath at home, currently on Teixeira. Patient has history of frequent UTIs Cr 1.5 > 1.7 Started Amox-Clav Weakness: Code(s): R53.1 - Weakness Status: Acute Assessment and Plan: Physical deconditioning due to multiple comorbidities PT OT ordered Seizure disorder: Code(s): G40.909 - Epilepsy, unspecified, not intractable, without status epilepticus Status: Chronic Assessment and Plan: Continue primidone and phenytoin(6) BPH (benign prostatic hyperplasia): Code(s): N40.0 - Benign prostatic hyperplasia without lower urinary tract symptoms Status: Acute Assessment and Plan: Continue Finasteride 5 mg tablet daily(7) Abdominal pain: Code(s): R10.9 - Unspecified abdominal pain Status: Acute Assessment and Plan: Ordered CT abd/pelvis shows Stercoral colitis. Started on Ciprofloxacin and Metronidazole Persistent large amount of predominantly distal colonic stool consistent with fecal impaction and constipation. Patient needs a manual fecal impaction. on lactulose 20 mg b.i.d. in addition to MiraLax and Senokot. Subjective Date/time seen: 06/22/24 08:24 Interval history: I saw examined the patient in presents of patient's sister Patient had low-grade fever 99.8 over the night, patient also has tachycardia tachypnea, patient has leukocytosis 14,300 a.m. Patient is a min more responsive, still confu
[2024-06-22 14:00] VITALS: BP 108/64; PULSE 112; RESP 15; TEMP 36.6; O2SAT 95
--- NOTE | 2024-06-22 14:41 | WPDGIPROGNO ---
Progress Note: A&P Assessment and Plan (1) Fecal impaction in rectum: Code(s): K56.41 - Fecal impaction Status: Acute Assessment and Plan: treated yesterday continue with bowel regimen and monitor (2) Stercoral colitis: Code(s): K52.89 - Other specified noninfective gastroenteritis and colitis Status: Acute Assessment and Plan: no need of endoscopic unless any complication (3) DVT (deep venous thrombosis): Code(s): I82.409 - Acute embolism and thrombosis of unspecified deep veins of unspecified lower extremity Status: Acute Assessment and Plan: on eliquis per primary (4) Abdominal pain: Code(s): R10.9 - Unspecified abdominal pain Status: Acute (5) Cognitive developmental delay: Code(s): F81.9 - Developmental disorder of scholastic skills, unspecified Status: Acute Subjective Date/time seen: 06/22/24 14:41 Interval history: confused, ngt in place and RN reports that is moving bowel movements after manual disimpaction yesterday Review of Systems Review of Systems: All systems reviewed & are unremarkable except as noted in HPI and below Exam Const: General: No no acute distress HENMT: Other: ngt in place Eyes: Sclera: sclerae normal Neck: Neck: supple Resp: Effort & Inspection: normal respiratory effort Cardio: Rate: regular rate GI: Inspection: distended GI Palp: Yes Soft to palpation and No Tenderness to palpation present (GI) Skin: General skin exam: no rashes or lesions noted Neuro: Other: confused, moving extremities Extrem: General: normal to inspection Psych: Affect: Anxious affect present Objective Data Vital Signs Vital Signs: Vital Signs - 24 hr 06/21/24 20:18 06/21/24 20:00 06/22/24 04:36 Temperature 97.9 F 97.7 F Pulse Rate 113 H 108 H Respiratory Rate 18 18 Blood Pressure 131/80 127/70 Pulse Oximetry 93 94 Oxygen Delivery Room Air 06/22/24 08:00 Temperature Pulse Rate Respiratory Rate Blood Pressure Pulse Oximetry Oxygen Delivery Room Air Intake/Output Intake/Output: Intake & Output 06/19/24 06/20/24 06/21/24 06/22/24 23:59 23:59 23:59 23:59 Intake Total 1583 3450 2158.3 1239.5 Output Total 900 1550 1050 1100 Balance 683 1900 1108.3 139.5 Meds/Results Medications: Active Medications Generic Name Dose Route Start Last Admin Trade Name Freq PRN Reason Stop Dose Admin Acetaminophen 650 mg 06/15/24 16:26 06/21/24 17:39 Acetaminophen 325 Mg Tablet PO 650 mg Q4H PRN Administration Mild Pain (1-3) or Fever Apixaban 10 mg 06/15/24 22:30 06/22/24 08:14 Apixaban 5 Mg Tablet PO 06/22/24 22:29 10 mg Q12HR ABBY Administration Ciprofloxacin 500 mg 06/20/24 21:00 06/22/24 08:14 Ciprofloxacin 500 Mg Tab PO 500 mg Q12HR ABBY Administration Finasteride 5 mg 06/16/24 09:00 06/22/24 08:14 Finasteride 5 Mg Tablet PO 5 mg DAILY ABBY Administration Dextrose/Sodium Chloride 1,000 mls @ 125 mls/hr 06/21/24 13:00 06/22/24 07:00 Dextrose 5% Sodium Chloride 0.9% IV CONT 125 mls/hr .Q8H ABBY Infusion Lactulose 20 gm 06/20/24 21:00 06/22/24 08:23 Lactulose 20 Gm/30 Ml Udc PO 20 gm QAM&HS ABBY Administration Metronidazole 500 mg 06/20/24 14:00 06/22/24 04:53 Metronidazole 500 Mg Tablet PO 500 mg Q8HR ABBY Administration Ondansetron HCl 4 mg 06/15/24 17:34 06/18/24 09:25 Ondansetron Inj 4 Mg/2 Ml Vial IV PUSH 4 mg Q6H PRN Administration Nausea And Vomiting Phenytoin Sodium 200 mg 06/16/24 09:00 06/22/24 08:14 Phenytoin Sodium 100 Mg Extended Release Cap PO 07/16/24 08:59 200 mg BID ABBY Administration Polyethylene Glycol 17 gm 06/19/24 17:00 06/22/24 08:14 Polyethylene Glycol 3350 17 Gm Powd.Pack PO 17 gm BID ABBY Administration Primidone 250 mg 06/16/24 09:00 06/22/24 12:30 Primidone 250 Mg Tablet PO 250 mg TID ABBY Administration
--- NOTE | 2024-06-22 15:15 | PC.NURSE ---
Family notified RN that the patient had pulled on his NG tube. Upon assessment his tube did appear to be pulled out to about 60. An order for a KUB was placed to verify placement. notified.
[2024-06-22] MEDS: levETIRAcetam 500MG/NACL 100ML 500 MG/100 ML BAG 400 MG IVPB (18:16)
[2024-06-22 20:39] VITALS: BP 109/62; PULSE 120; RESP 20; TEMP 37.3; O2SAT 95
[2024-06-22 21:37] LABS: Appearance Urine Sl Cloudy (Clear); Color Urine Dark Yellow (Yellow); Specific Grav Ur 1.015 (1.001-1.035)
[2024-06-22 21:38] LABS: Blood Urine Trace-Lysed (Negative); Glucose Urine UA Trace mg/dL (Negative); Ketones Urine Trace mg/dL (Negative); Protein Urine 2+ mg/dL (Negative)
[2024-06-22 21:39] LABS: Add Urine Microscopic? YES; Bilirubin Urine 3+ (Negative); Leukocyte Esterase Ur Trace LEU/UL (Negative); Nitrate Urine Negative (Negative)
[2024-06-22 21:47] LABS: Bacteria Urine None Seen /hpf; Squamous Epithelial Cell Urine Few /hpf (Few)
[2024-06-22] MEDS: SENNA/DOCUSATE SODIUM TABLET 1 TAB PO (22:01)
[2024-06-22 23:25] VITALS: BP 117/76; PULSE 126; RESP 36; TEMP 38.1; O2SAT 96
--- NOTE | 2024-06-22 23:35 | PC.NURSE ---
Spoke with Dr. Naidu at this time r/t patient change in condition. Resp elevated to 36, elevated temp, elevated HR, declined mental status. New orders received for STAT ABG, STAT Lactic, procalcitonin, CBC, CMP, CXR, CT brain, CT abd and pelvis.
--- NOTE | 2024-06-22 23:50 | PM.CCN ---
Critical Care Event Note Summary Code activated: No Narrative: Nursing staff called me just prior to midnight on 06/22/2024 Patient has been hospitalized since June 15 due to lower extremity DVT and constipation/fecal impact and serocolitis. Her the patient had been less responsive and had NG tube placed 2 days ago station of administration of bowel regimen. On the morning of the the patient had had temperature of 99.8? and mildly elevated white count. Blood cultures have been obtained. The patient has been started on antibiotics with Cipro and Flagyl on the . Nursing staff called me because they were concerned. The patient was not responding to stimuli even with sternal rub. He he had become acutely tachypneic with respiratory rate in the 30s and his heart rate had jumped into the 120s. I ordered stat labs including CBC CMP, lactic acid, procalcitonin and UA with reflex and ABG.. When I arrived at the bedside respiratory therapy withdrawing ABG which returned with a pH of 7.5 pCO2 of 24 PO2 the low in the upper 60s. EKG was performed which demonstrated sinus tachycardia on my review. The patient initially was not febrile with temporal scanning thermometer but by the time I arrived at the bedside the patient was hot to touch and had a temperature of 101.4? axillary. Patient's right eye was noted to be deviated to the right. Nursing staff that the patient had not taking care the patient 4 in did not know if this was a new finding. Patient was sent down for stat CT of the head without contrast. During my evaluation patient's abdomen was noted to be markedly distended and patient had significant pain to palpation of the right side of the abdomen and would actually occasionally moan with palpation of the right-sided abdomen. The patient had hypoactive bowel sounds but the abdomen was for the most part soft. The patient was sent down also for CTA of the chest given his history of recent DVT for which she is on Eliquis and had just completed a 7 day loading dose. And a as CT of the pelvis with contrast to further evaluate. The patient's CTA demonstrated large clot burden with evidence of right-sided heart strain. Despite having with evidence right heart strain patient remained on room air with saturations in the upper 90s The patient's antibiotic coverage was broadened to Zosyn and vancomycin was added. I did call the patient's sister Raquel who is also his healthcare power of trademark attorney to discuss this change in condition. Management options were discussed with the patient's sister including possible transfer to tertiary care for evaluation by IR/vascular surgery for possible thrombectomy or thrombolysis. Patient's sister expressed desire to least have a discussion of that as a possible option. I contacted Dr. Azar through the in who stated that she would be happy to see the patient in consult if the patient were transferred if that is what the family would desire. She could not say 1 where the other they would definitively do the procedure. The transfer bottle line worker stated that there was a several day wait for medical beds but it family was interested in transfer to call back. When I tried to call the patient's sister back her family members stated that she was on the way to the hospital and did not have another number to reach her at. I later located the patient's family members at bedside. Patient's healthcare power of trademark attorney and the patient's great niece were present. My discussion with the vascular service at [facility] was discussed. The sister at this time does not want to send the patient to [facility] it is likely that the patient would get in intervention. At this time she would like to wait until with a have the results of the echocardiogram. If the echocardiogram demonstrates significant pulmonary hypertension/right-sided strain or the patient's troponins becomes significantly elevated where it would be more likely the patient may get in
[2024-06-22 23:55] LABS: Alveolar/Arterial O2 Gradient 50.8 mmHg; Base Excess ABG -1.3 mEq/l (+/-2.0); Fractional Inspired Oxygen 21 %; Oxygen Content ABG 16.4 %vol (16.0-22.0); Oxygen Saturation ABG 95.9 % (95.0-100.0); Oxyhemoglobin 94.7 % THb (90.0-100.0); PCO2 ABG 24.4 mmHg (35.0-45.0); PO2 ABG 69.7 mmHg (80.0-100.0); PO2 FiO2 Ratio Arterial Blood 3.32 %; Total Hemoglobin 12.3 g/dL (12.0-18.0)
[2024-06-22 23:57] LABS: Modified Allen's Test Pass; Site Drawn RIGHT RADIAL; pH ABG 7.531 (7.350-7.450)
[2024-06-23] VITALS (40 sets, daily range): BP systolic 76–134; BP diastolic 51–77; PULSE 98–120; RESP 17–24; TEMP 36.8–38.6; O2SAT 90–100
--- NOTE | 2024-06-23 | ECHO_ITS ---
Patient Info Name: Tomas Mart Age: 78 years : 1945 Gender: Male Ht: 74 in Wt: 230 lbs BSA: 2.35 m2 HR: 114 bpm BP: 134 / 70 mmHg Heart Rhythm: Tachycardia Technical Quality: Fair Exam Date: 06/23/2024 9:58 AM Exam Location: Echo Lab Patient Status: Inpatient Admit Date: 06/19/2024 Staff Ordering Physician: Ghazala Naidu DO Bilingual Teacher Assistant: Andra Joe RDCS Attending Provider: Jah Chamorro MD Referring Physician: Evangelista WONG; Exam Type: CA echo doppler color flow Study Info Indications - heart strain, Large pulm embolism Complete two-dimensional, color flow and Doppler transthoracic echocardiogram is performed with contrast to opacify the left ventricle and to improve the deliniation of the left ventricle endocardial borders. Contrast/Agitated Saline Contrast/Ag. Saline: Definity Amount: 2.00 ml Administered By: Andra Joe RDCS Existing IV Access: Yes IV Access Condition: patent with no signs of infiltration Summary 1. Definity contrast administered improved wall motion interpretation. 2. Left ventricular chamber dimension is normal. 3. Left ventricular systolic function is hyperdynamic, estimated at >70%. 4. The left ventricular diastolic function is grade I diastolic dysfunction. 5. E/e' 9 is minimally elevated. 6. Right ventricular chamber dimension is not well visualized. 7. Right ventricular systolic function is reduced based on abnormal TAPSE 1.5 cm. 8. No pulmonary hypertension, estimated pulmonary arterial systolic pressure is 21 mmHg. Left Ventricle E/e' 9 is minimally elevated. Definity contrast administered improved wall motion interpretation. Left ventricular chamber dimension is normal. Left ventricular systolic function is hyperdynamic, estimated at >70%. The left ventricular diastolic function is grade I diastolic dysfunction. Right Ventricle Right ventricular systolic function is reduced based on abnormal TAPSE 1.5 cm. Right ventricular chamber dimension is not well visualized. Left Atria Left atrial chamber dimension is normal. Right Atria Right atrial chamber dimension is not well visualized. Aortic Valve The aortic valve is not well visualized. Cannot determine number of aortic valve leaflets. There is no aortic valve stenosis. There is no aortic valve regurgitation. Pulmonic Valve There is no pulmonic regurgitation. Mitral Valve There is no mitral valve stenosis. There is no mitral valve regurgitation. Tricuspid Valve The tricuspid valve leaflets are not well visualized. There is no tricuspid valve regurgitation. No pulmonary hypertension, estimated pulmonary arterial systolic pressure is 21 mmHg. Pericardium/Pleural There is no pericardial effusion. Inferior Vena Cava Normal inferior vena cava with >50% collapse upon inspiration consistent with normal right atrial pressure, 5 mmHg. Aorta The aortic root size at the sinus of Valsalva is normal. Left Ventricular Outflow Tract Name Value Normal LVOT 2D LVOT Diameter 2.0 cm LVOT Doppler LVOT Peak Gradient 7 mmHg LVOT Mean Gradient 4 mmHg LVOT VTI
[2024-06-23 00:06] LABS: Basophils Absolute Auto 0.1 K/mm3 (0.0-0.1); Basophils Percent Auto 0.8 % (0.2-1.2); Eosinophils Percent Auto 0.3 % (0-4.4); Hemoglobin 11.5 g/dL (14.0-18.0); Immature Granulocyte Absolute 0.34 K/mm3 (0.00-0.031); Immature Granulocyte Percent A 2.1 % (0-0.5); Lymphocytes Absolute Auto 0.75 K/mm3 (0.9-3.2); Lymphocytes Percent Auto 4.7 % (18.3-44.2); Mean Corpuscular HGB Conc 32.9 g/dl (32-36); Mean Corpuscular Hemoglobin 28.9 pg (26-34); Mean Corpuscular Volume 87.9 fl (80-100); Mean Platelet Volume 10.5 fl (7.4-10.4); Monocytes Absolute Auto 1.6 K/mm3 (0.1-0.6); Monocytes Percent Auto 10.3 % (2.6-8.5); Neutrophils Percent Auto 81.8 % (45.5-73.1); Platelet Count Result 388 k/mm3 (150-375); Red Blood Count 3.98 M/mm3 (4.6-6.20); Red Cell Distribution Width 14.7 % (11.5-14.5); White Blood Count 15.8 K/mm3 (4.5-10.0)
[2024-06-23 00:16] LABS: Alanine Aminotransferase 27 U/L (6-50); Albumin Level 2.8 g/dL (3.5-5.1); Alkaline Phosphatase 184 U/L (38-126); Anion Gap 12 mmol/L (4-12); Aspartate Amino Transferase 52 U/L (17-59); Blood Urea Nitrogen 58 mg/dL (9-20); Carbon Dioxide 19 mmol/L (22-30); Chloride 113 mmol/L (98-107); Estimated CRCL calculation 46 ml/min; Estimated Glomerular Filt Rate 49; Glucose 180 mg/dL (65-110); Lactic Acid Reflex 2.1 mmol/L (0.7-2.0); Potassium 4.3 mmol/L (3.4-5.0); Sodium 144 mmol/L (137-145)
--- NOTE | 2024-06-23 00:24 | ECG_ITS ---
Test Date: 2024-06-23 00:24:50 Measurements Intervals [place] Rate: 125 P: 143 MD: 168 QRS: 64 QRSD: 86 T: -39 QT: 325 QTc: 469 Interpretive Statements SINUS TACHYCARDIA MISSING LEAD V1 ST-T WAVE ABNORMALITY IN INFERIOR LEADS- CONSIDER ISCHEMIA BASELINE ARTIFACT- I, II, III, AVR, AVL, AVF, V4-V6 ABNORMAL ECG Compared to ECG 06/15/2024 12:42:01 POSSIBLE ISCHEMIA NOW PRESENT Electronically Signed On 06-23-2024 06:47:03 CDT by Mariano Sandoval D.O.
[2024-06-23 00:49] LABS: Procalcitonin 1.9 ng/mL
[2024-06-23] MEDS: PIPERACILLN/TAZ 3.375GM/NS50ML 3.375 GM/50 ML BAG IVPB ×4 (01:48→20:48)
[2024-06-23] MEDS: SODIUM CHLORIDE 0.9% IV 3,100 ML/1,000 ML BAG 999 ML IV CONT ×2 (01:48→02:59)
[2024-06-23] MEDS: ACETAMINOPHEN 325 MG TABLET 650 MG PO (01:58)
--- NOTE | 2024-06-23 02:13 | PC.NURSE ---
Report called to Evangelina SILVESTRE in IMU at this time.
[2024-06-23] MEDS: VANCOMYCIN 1,250 MG/NS 250 ML 1,250 MG/250 ML BAG 166.67 MG IVPB ×2 (02:48→04:03)
[2024-06-23 03:03] LABS: Reflex Lactic Acid Yes or No Add Lactic
[2024-06-23 03:31] LABS: Basophils Absolute Auto 0.1 K/mm3 (0.0-0.1); Basophils Percent Auto 0.5 % (0.2-1.2); Eosinophils Percent Auto 0.1 % (0-4.4); Hematocrit 32.5 % (42.0-52.0); Hemoglobin 10.7 g/dL (14.0-18.0); Immature Granulocyte Absolute 0.28 K/mm3 (0.00-0.031); Immature Granulocyte Percent A 1.8 % (0-0.5); Lymphocytes Absolute Auto 0.81 K/mm3 (0.9-3.2); Lymphocytes Percent Auto 5.2 % (18.3-44.2); Mean Corpuscular HGB Conc 32.9 g/dl (32-36); Mean Corpuscular Hemoglobin 29.2 pg (26-34); Mean Corpuscular Volume 88.8 fl (80-100); Mean Platelet Volume 10.5 fl (7.4-10.4); Monocytes Absolute Auto 1.7 K/mm3 (0.1-0.6); Monocytes Percent Auto 10.9 % (2.6-8.5); Neutrophils Absolute Auto 12.8 K/mm3 (1.3-6.7); Neutrophils Percent Auto 81.5 % (45.5-73.1); Platelet Count Result 357 k/mm3 (150-375); Red Blood Count 3.66 M/mm3 (4.6-6.20); Red Cell Distribution Width 14.9 % (11.5-14.5); White Blood Count 15.7 K/mm3 (4.5-10.0)
[2024-06-23 03:41] LABS: Alanine Aminotransferase 23 U/L (6-50); Albumin Level 2.4 g/dL (3.5-5.1); Alkaline Phosphatase 164 U/L (38-126); Anion Gap 11 mmol/L (4-12); Aspartate Amino Transferase 46 U/L (17-59); Bilirubin,Total 1.1 mg/dL (0.2-1.3); Blood Urea Nitrogen 55 mg/dL (9-20); Calcium 7.2 mg/dL (8.4-10.2); Carbon Dioxide 20 mmol/L (22-30); Chloride 114 mmol/L (98-107); Estimated CRCL calculation 46 ml/min; Estimated Glomerular Filt Rate 49; Glucose 144 mg/dL (65-110); Lactic Acid 1.5 mmol/L (0.7-2.0); Potassium 4.5 mmol/L (3.4-5.0); Sodium 145 mmol/L (137-145)
[2024-06-23 03:50] LABS: NT Pro B Type Natriuretic Pept 561 pg/mL (19.9-100)
[2024-06-23 03:53] LABS: Platelet Estimate Adequate (Adequate); Troponin I 0.028 ng/mL (0.000-0.034)
[2024-06-23 03:54] LABS: Anisocytosis 1+; Burr Cells 2+; Ovalocytes 1+; Schistocytes Rare
[2024-06-23 04:37] LABS: MRSA (PCR) NOT DETECTED (NOT DETECTE)
[2024-06-23] MEDS: DEXTROSE 5%/0.9% SOD CHL 1,000 ML 125 ML IV CONT (05:33)
[2024-06-23] MEDS: metroNIDAZOLE 500 MG/ISO 100ML 500 MG/100 ML BAG 100 MG IVPB ×2 (05:46→15:06)
[2024-06-23 06:40] LABS: Troponin I 0.028 ng/mL (0.000-0.034)
[2024-06-23 06:42] LABS: INR 2.1; Prothrombin Time 23.5 Seconds (11.1-14.7)
[2024-06-23 06:43] LABS: Partial Thromboplastin Time 36.4 Seconds (22.3-36.8)
--- NOTE | 2024-06-23 07:50 | PC.NURSE ---
Attempted to contact Dr. Lovett without success.
--- NOTE | 2024-06-23 08:13 | PCPTNOTE ---
Patient transferred from medical floor to IMU overnight due to change in medical status. PT will hold treatment at this time and await recommendation from physician to hold or resume PT.
[2024-06-23] MEDS: LACTULOSE 20 GM/30 ML UDC PO (09:08)
--- NOTE | 2024-06-23 09:08 | PC.NURSE ---
Attempt to contact Dr. Lovett via telephone without success.
[2024-06-23] MEDS: DEXTROSE 5%/LACTATED RINGERS 1,000 ML 100 ML IV CONT (09:27)
[2024-06-23] MEDS: levETIRAcetam 500MG/NACL 100ML 500 MG/100 ML BAG 400 MG IVPB ×2 (09:28→20:54)
[2024-06-23] MEDS: APIXABAN 5 MG TABLET PO (09:30)
[2024-06-23 09:36] LABS: Troponin I 0.025 ng/mL (0.000-0.034)
--- NOTE | 2024-06-23 09:57 | ECG_ITS ---
Test Date: 2024-06-23 10:16:43 Measurements Intervals [place] Rate: 120 P: -14 DE: 133 QRS: 51 QRSD: 82 T: -14 QT: 318 QTc: 449 Interpretive Statements SINUS TACHYCARDIA BORDERLINE ST-T WAVE ABNORMALITY- INF/LAT LEADS BASELINE ARTIFACT- I, II, AVR, V3-V6 ABNORMAL ECG Compared to ECG 06/23/2024 00:24:50 NO SIGNIFICANT CHANGE Electronically Signed On 06-23-2024 10:41:12 CDT by Mariano Sandoval D.O.
[2024-06-23] MEDS: PERFLUTREN LIPID MICROSPHERES 1.5 ML VIAL DILUTED TO 10 ML TOTAL VOLUME IV PUSH (10:00)
--- NOTE | 2024-06-23 10:01 | PC.NURSE ---
Dr. Lovett contacted via telephone new orders received.
--- NOTE | 2024-06-23 10:06 | PC.NURSE ---
Dr. Lovett at bedside. Family in ICU waiting room.
[2024-06-23 10:15] LABS: Alveolar/Arterial O2 Gradient 115.5 mmHg; Base Excess ABG -3.3 mEq/l (+/-2.0); Fractional Inspired Oxygen 34 %; HCO3 ABG 19.3 mEq/l (22.0-26.0); Oxygen Content ABG 15.9 %vol (16.0-22.0); Oxygen Saturation ABG 97.7 % (95.0-100.0); Oxyhemoglobin 96.5 % THb (90.0-100.0); PCO2 ABG 27.3 mmHg (35.0-45.0); PO2 ABG 95.1 mmHg (80.0-100.0); Total Hemoglobin 11.6 g/dL (12.0-18.0); pH ABG 7.467 (7.350-7.450)
[2024-06-23 10:17] LABS: Device NASAL CANNULA; Liters per Minute 3.5 LPM; Site Drawn RIGHT RADIAL
[2024-06-23 10:18] LABS: Hematocrit 36.2 % (42.0-52.0); Hemoglobin 11.5 g/dL (14.0-18.0); Mean Corpuscular HGB Conc 31.8 g/dl (32-36); Mean Corpuscular Hemoglobin 28.8 pg (26-34); Mean Corpuscular Volume 90.7 fl (80-100); Mean Platelet Volume 10.9 fl (7.4-10.4); Platelet Count Result 398 k/mm3 (150-375); Red Blood Count 3.99 M/mm3 (4.6-6.20); Red Cell Distribution Width 15.1 % (11.5-14.5); White Blood Count 18.7 K/mm3 (4.5-10.0)
--- NOTE | 2024-06-23 10:38 | IVDEFINITY ---
Prior to administration of IV Definity the patient was educated on the risks and benefits of the imaging enhancing agent including potential adverse side effects. The patient verbalized understanding. Allergies were verified. No exclusion criteria were identified and at least one of the following inclusion criteria were met: 1) physician request, 2) patient technically difficult to image (per the [place] [employer] guidelines of two or more segments not discernable within the apical view), or 3) questionable left ventricular function. ?
[2024-06-23] MEDS: SODIUM CHLORIDE 0.9% IV 500 ML 1000 ML IV CONT (10:40)
[2024-06-23 10:49] LABS: Anion Gap 13 mmol/L (4-12); Blood Urea Nitrogen 56 mg/dL (9-20); Calcium 7.6 mg/dL (8.4-10.2); Carbon Dioxide 17 mmol/L (22-30); Chloride 116 mmol/L (98-107); Estimated CRCL calculation 50 ml/min; Estimated Glomerular Filt Rate 54; Glucose 150 mg/dL (65-110); Potassium 5.6 mmol/L (3.4-5.0); Sodium 146 mmol/L (137-145)
[2024-06-23] MEDS: PRIMIDONE 250 MG TABLET PO (10:49)
[2024-06-23 11:34] LABS: Glucose Point of Care 157 mg/dl (65-105)
--- NOTE | 2024-06-23 13:21 | PM.IMPN ---
Progress Note: A&P Assessment and Plan (1) Abdominal pain: Code(s): R10.9 - Unspecified abdominal pain Status: Acute (2) DVT (deep venous thrombosis): Code(s): I82.409 - Acute embolism and thrombosis of unspecified deep veins of unspecified lower extremity Status: Acute (3) UTI (urinary tract infection): Qualifiers: Urinary tract infection type: site unspecified Hematuria presence: without hematuria Qualified Code(s): N39.0 - Urinary tract infection, site not specified Code(s): N39.0 - Urinary tract infection, site not specified Status: Acute Plan PE with right heart strain Patient was managed with Eliquis for DVT before to being diagnosed with PE Reverted to Heparin infusion Hold Eliquis Troponin negative, ECHO showed EF >70%, grade I diastolic dysfunction, RV chamber not well visualized, RVSF reduced. Will follow up with [facility] about transfer discussed with family is DNR/DNI monitor very closely CTA Chest and AP reviewed Sepsis likely from Stercoral proctitis vs pneumonia Continue IVF, continue broad-spectrum antibiotics F/u with cultures monitor closely low threshholds for ICU transfer Fecal impaction Patient abdominal pain has been evaluated and CT was performed which shows stercoral colitis. added MiraLax and sennakot in his bowel regimen but still he does not have any bowel movement. added antibiotic ciprofloxacin and metronidazole. KUB which shows persistent large amount of predominantly distal colonic stool consistent with fecal impaction and constipation. Patient needs a manual fecal impaction. start GoLYTELY a 3 L p.o. 8 oz every 20 minutes contour large bowel movement, patient cannot take oral medication. Will place NG tube to feed GoLYTELY Also Consulted GI for disimpaction with scope if patient failed GoLYTELY. Dr. Philip agreed the plan 06/22. GI rec lactulose, Xr showed Stable bowel gas pattern. management per GI Acute metabolic encephalopathy Due to multiple comorbidities including UTI, dehydration Patient is arousable Changed to D5 normal saline 125 mL/hour Neuro check q.4 hours f/u ct/head no contrast DVT (deep venous thrombosis): Code(s): I82.409 - Acute embolism and thrombosis of unspecified deep veins of unspecified lower extremity Status: Acute Assessment and Plan: Venous Doppler positive for DVT Patient started on Eliquis 10 mg b.i.d. for 7 days, then switch to 5 mg b.i.d. per DVT protocol Left leg swelling: Code(s): M79.89 - Other specified soft tissue disorders Status: Acute Assessment and Plan: See above UTI (urinary tract infection): Qualifiers: Hematuria presence: without hematuria Urinary tract infection type: site unspecified Qualified Code(s): N39.0 - Urinary tract infection, site not specified Code(s): N39.0 - Urinary tract infection, site not specified Status: Acute Assessment and Plan: UA, 3-5 urine RBC, 11-20 urine WBC, rare bacteria. Urine culture shows coag-negative staphylococcal. Straight cath at home, currently on Teixeira. Patient has history of frequent UTIs Cr 1.5 > 1.7 Started Amox-Clav Weakness: Code(s): R53.1 - Weakness Status: Acute Assessment and Plan: Physical deconditioning due to multiple comorbidities PT OT ordered Seizure disorder: Code(s): G40.909 - Epilepsy, unspecified, not intractable, without status epilepticus Status: Chronic Assessment and Plan: Continue primidone and phenytoin(6) BPH (benign prostatic hyperplasia): Code(s): N40.0 - Benign prostatic hyperplasia without lower urinary tract symptoms Status: Acute Assessment and Plan: Continue Finasteride 5 mg tablet daily(7) Abdominal pain: Code(s): R10.9 - Unspecified abdominal pain Status: Acute Assessment and Plan: Ordered CT abd/pelvis shows Stercoral c
[2024-06-23] MEDS: ETOMIDATE 20 MG/10 ML AMPUL IV PUSH (13:59)
[2024-06-23] MEDS: ROCURONIUM BROMIDE 50 MG/5 ML VIAL IV PUSH (14:00)
--- NOTE | 2024-06-23 14:03 | WPDPROCEDUR ---
Procedures Intubation Intubation Date: 06/23/24 Intubation Time: 14:00 Consent: Michael DASH spoke with family and obtained consent prior to procedure. A pre-procedural Time-Out was completed immediately before starting the procedure and confirmed: Patient Identification, Site, Procedure, Patient Position and the Availability of Requisite Equipment: Yes Sedative: etomidate Mg given: 20 Paralytic: rocuronium Mg given: 50 Laryngoscope: fiber optic video scope ET tube size: 7.5 Tube secured depth (cm): 24 Tube secured location: teeth Tube placement confirmation: visualized tube passing through cords, equal breath sounds bilaterally and confirmation by capnometry Patient tolerated procedure: well Intubation complications: none Additional comments: CXR to confirm, Michael DASH at bedside.
--- NOTE | 2024-06-23 14:31 | WPDCNINT ---
Assessment and Plan Assessment and plan (1) Acute respiratory failure: Code(s): J96.00 - Acute respiratory failure, unspecified whether with hypoxia or hypercapnia Status: Acute Assessment and Plan: Patient with multiple segmental level pulmonary emboli bilaterally with right heart strain on CTA done on 06/23/2024 -patient was in the IMU, was tachypneic, tachycardic, obtunded, using accessory muscles of respiration -06/23/2024: Patient intubated for impending respiratory failure -placed patient on CMV mode of ventilation, peep of 5, 100% FiO2 currently will wean FiO2 after obtaining post intubation ABGs -will start DuoNebs -sedated with fentanyl and Versed infusion, maintain RASS of 0 to -2, daily SBT and SAT (2) Sepsis: Qualifiers: Sepsis type: sepsis due to unspecified organism Sepsis acute organ dysfunction status: unspecified Qualified Code(s): A41.9 - Sepsis, unspecified organism Code(s): A41.9 - Sepsis, unspecified organism Status: Acute Assessment and Plan: Patient was tachycardic, tachypneic, febrile with a T-max of 101.4? leukocytosis with WBC of 18.7, lactic acid was 2.1 -elevated procalcitonin to 1.9 -possible stercoral colitis, aspiration pneumonia/pneumonitis -continue vancomycin and Zosyn, -will discontinue Flagyl -06/15/2024: Urine cultures growing coag-negative staph -06/22/2024: Preliminary blood cultures are negative (3) Pulmonary embolism: Code(s): I26.99 - Other pulmonary embolism without acute cor pulmonale Status: Acute Assessment and Plan: Bilateral pulmonary emboli with right heart strain -patient initially on Eliquis, has been switched to heparin infusion at this time 06/23/2024: CTA chest abdomen pelvis showed multiple segmental level pulmonary emboli bilaterally with right heart strain. Marked stool distention of sigmoid colon rectum with wall thickening and mild surrounding inflammatory change at the rectum compatible with severe fecal impaction and constipation with stercoral proctitis. No free air evident. Benign appearing cystic lesion in the pancreatic tail, moderate bilateral hydronephrosis, nonobstructing left renal stone and urinary bladder stone unchanged. (4) DVT (deep venous thrombosis): Code(s): I82.409 - Acute embolism and thrombosis of unspecified deep veins of unspecified lower extremity Status: Acute Assessment and Plan: Left lower extremity DVT as seen on venous Dopplers below -continue heparin infusion 06/15/2024 venous Dopplers showed DVT involving left common femoral, femoral and popliteal veins (5) Fecal impaction in rectum: Code(s): K56.41 - Fecal impaction Status: Acute Assessment and Plan: Patient has significant fecal impaction -GI following -patient did get manual impaction done by GI -continue lactulose, MiraLax, senna S -NG tube to suction -will continue maintenance IV fluids (6) UTI (urinary tract infection): Qualifiers: Hematuria presence: without hematuria Urinary tract infection type: site unspecified Qualified Code(s): N39.0 - Urinary tract infection, site not specified Code(s): N39.0 - Urinary tract infection, site not specified Status: Acute Assessment and Plan: UA showed UTI admission, -06/15 urine cultures growing coag-negative staph -continue antibiotics as above (7) Seizure disorder: Code(s): G40.909 - Epilepsy, unspecified, not intractable, without status epilepticus Status: Chronic Assessment and Plan: Patient with seizure disorder, continue primidone and Keppra (8) Cognitive developmental delay: Code(s): F81.9 - Developmental disorder of scholastic skills, unspecified Status: Acute Plan DVT prophylaxis: Heparin infusion Stress ulcer prophylaxis: Protonix Nutrition: NPO for now Code Status: Full code Critical Care Time Spent: 55 minutes Discussed with patient's siste
--- NOTE | 2024-06-23 14:31 | WPDPROCEDUR ---
Procedures Central Line Placement Right IJ: Central Line Date: 06/23/24 Central Line Time: 14:31 Discussed w/ the patient/family/POA,the placement of a central venous catheter, including its clinical necessity/indication & associated potential risks, benifits and alternatives.: Yes Consent: I have discussed with the patient and/or surrogate, the non-emergent placement of a central venous catheter, including its clinical necessity/indication and associated potential risks and complications. The patient and/or surrogate understand(s) and acknowledge(s) the need to proceed with central venous catheter insertion as an important element of the patient's clinical management. Time Out Performed: Yes Patient Position: supine Patient placed on monitor/pulse ox: Yes Provider Prep: mask, sterile gown, sterile gloves, Max. sterile barrier precautions, cap and hand hygiene with conventional soap/water or alcohol based hand rub Central line prep: 2% Chlorhexidine scrub Local anesthesia used: lidocaine 1% Amount of anesthesia used (ml): 3 Sterile US Technique with sterile gel/sterile probe covers: Yes Central line lumen inserted: triple Bulgarian: 7 Length (cm): 16 Depth of Insertion (cm): 16 Post Procedure: sutured in place, good blood return, all ports aspirated, flushed, capped, transparent dressing, hemostatic product, antimicrobial product, securement product and aseptic technique maintained throughout procedure Post procedure x-ray: tip of catheter in good position Patient tolerated procedure: well Complications: none
[2024-06-23] MEDS: FENTANYL 2,500MCG/NS250ML(*CRX 2,500 MCG/250 ML BAG IV CONT (14:45)
[2024-06-23] MEDS: MIDAZOLAM 100MG/NS 100ML(*CRX) 100 MG/100 ML BAG IV CONT (14:46)
[2024-06-23] MEDS: LACTATED RINGERS 1,000 ML 999 ML IV CONT (14:48)
--- NOTE | 2024-06-23 14:57 | PC.NURSE ---
This patient, Tomas Mart, was transferred to ICU 2 via bed on 06/23/24 at 1340. Personal belongings sent with patient. Report given to [email or web address]@ [phone]. Appropriate documentation sent with patient.
[2024-06-23 15:03] LABS: Basophils Absolute Auto 0.1 K/mm3 (0.0-0.1); Basophils Percent Auto 0.9 % (0.2-1.2); Eosinophils Percent Auto 0.1 % (0-4.4); Hematocrit 31.6 % (42.0-52.0); Hemoglobin 10.2 g/dL (14.0-18.0); Immature Granulocyte Absolute 0.25 K/mm3 (0.00-0.031); Immature Granulocyte Percent A 1.6 % (0-0.5); Lymphocytes Absolute Auto 0.75 K/mm3 (0.9-3.2); Lymphocytes Percent Auto 4.7 % (18.3-44.2); Mean Corpuscular HGB Conc 32.3 g/dl (32-36); Mean Corpuscular Hemoglobin 28.8 pg (26-34); Mean Corpuscular Volume 89.3 fl (80-100); Mean Platelet Volume 10.5 fl (7.4-10.4); Monocytes Absolute Auto 1.9 K/mm3 (0.1-0.6); Monocytes Percent Auto 11.5 % (2.6-8.5); Neutrophils Percent Auto 81.2 % (45.5-73.1); Platelet Count Result 356 k/mm3 (150-375); Red Blood Count 3.54 M/mm3 (4.6-6.20); Red Cell Distribution Width 15.1 % (11.5-14.5)
[2024-06-23] MEDS: LACTATED RINGERS 1,000 ML 75 ML IV CONT (15:06)
[2024-06-23 15:16] LABS: INR 2.3; Partial Thromboplastin Time 30.9 Seconds (22.3-36.8); Prothrombin Time 25.3 Seconds (11.1-14.7)
[2024-06-23 15:35] LABS: Alveolar/Arterial O2 Gradient 234.9 mmHg; Base Excess ABG -4.6 mEq/l (+/-2.0); Carboxyhemoglobin 0.2 % THb (0-2.0); Fractional Inspired Oxygen 100 %; HCO3 ABG 17.7 mEq/l (22.0-26.0); Methemoglobin ABG 0.2 %THb (0-1.5); Oxygen Content ABG 15.8 %vol (16.0-22.0); Oxygen Saturation ABG 99.9 % (95.0-100.0); Oxyhemoglobin 99.3 % THb (90.0-100.0); PCO2 ABG 24.5 mmHg (35.0-45.0); PO2 ABG 453.6 mmHg (80.0-100.0); PO2 FiO2 Ratio Arterial Blood 4.54 %; Reduced Hemoglobin 0.3 %THb (0-5.0); Total Hemoglobin 10.4 g/dL (12.0-18.0); pH ABG 7.477 (7.350-7.450)
[2024-06-23 15:37] LABS: Device VENTILATOR; Site Drawn RIGHT RADIAL
[2024-06-23 15:38] LABS: Arterial Blood Gas PEEP 5 cmH2O; Arterial Blood Gas Tidal Volume 530 ml; Arterial Blood Gas Vent Mode CMV; Arterial Blood Gas Ventilator rate 24 /MIN
[2024-06-23 16:02] LABS: Ovalocytes 1+; Platelet Estimate Adequate (Adequate); Schistocytes None Seen
[2024-06-23 16:04] LABS: Lactic Acid Reflex 1.8 mmol/L (0.7-2.0)
[2024-06-23] MEDS: PANTOPRAZOLE SODIUM IV 40 MG VIAL IV PUSH (16:29)
[2024-06-23] MEDS: HEPARIN SOD/D5W 100 UNITS/ML 25,000 UNITS/250 ML BAG 15 UNITS IV CONT (16:30)
--- NOTE | 2024-06-23 16:45 | WPDGIPROGNO ---
Progress Note: A&P Assessment and Plan (1) Fecal impaction in rectum: Code(s): K56.41 - Fecal impaction Status: Acute Assessment and Plan: manual disimpaction, on bowel regimen he developed respiratory failure due to large PE, currently intubated monitor (2) Stercoral colitis: Code(s): K52.89 - Other specified noninfective gastroenteritis and colitis Status: Acute Assessment and Plan: medical management, now complicated with large PE and he is intubated he is passing BM (3) DVT (deep venous thrombosis): Code(s): I82.409 - Acute embolism and thrombosis of unspecified deep veins of unspecified lower extremity Status: Acute Assessment and Plan: on eliquis per primary (4) Pulmonary embolism: Code(s): I26.99 - Other pulmonary embolism without acute cor pulmonale Status: Acute Assessment and Plan: on blood thinner (5) Acute respiratory failure: Code(s): J96.00 - Acute respiratory failure, unspecified whether with hypoxia or hypercapnia Status: Acute Assessment and Plan: intubated (6) Abdominal pain: Code(s): R10.9 - Unspecified abdominal pain Status: Acute (7) Cognitive developmental delay: Code(s): F81.9 - Developmental disorder of scholastic skills, unspecified Status: Acute Subjective Date/time seen: 06/23/24 16:45 Interval history: he was found to have PE after having more respiratory distress and finally intubated and moved to [employer] reports that had large liquid stools NGT in place Review of Systems Review of Systems: All systems reviewed & are unremarkable except as noted in HPI and below Exam Narrative: General: Intubated and sedated HEENT:? Pupils equal and reactive, sclera is clear, NGT in place Neck:? Supple Respiratory:? Coarse breath sounds bilaterally, decreased at bases, adequate air entry, no wheezing Cardiac:? S1-S2 normal, regular rate and rhythm Abdomen:? Soft, nontender, nondistended, hypoactive bowel sounds, tympanic on percussion Extremities:? Left lower extremity pitting edema of the shins and ankles and foot. Neuro:? Patient is intubated, sedated, does not open his eyes or follow simple commands Skin:? Bruising noted on the bilateral upper extremities Psych:? Unable to assess Objective Data Vital Signs Vital Signs: Vital Signs - 24 hr 06/22/24 20:39 06/22/24 20:00 06/23/24 00:20 Temperature 99.1 F 101.4 F H Pulse Rate 120 H Respiratory Rate 20 Blood Pressure 109/62 Pulse Oximetry 95 Oxygen Delivery Room Air Oxygen Flow Rate Fraction of Inspired Oxygen 06/23/24 01:58 06/22/24 23:25 06/23/24 04:30 Temperature 101.4 F H 100.5 F H 98.8 F Pulse Rate 126 H 114 H Respiratory Rate 36 H 24 H Blood Pressure 117/76 134/70 Pulse Oximetry 96 90 Oxygen Delivery Oxygen Flow Rate Fraction of Inspired Oxygen 06/23/24 04:00 06/23/24 06:16 06/23/24 06:37 Temperature Pulse Rate 114 H 114 H 114 H Respiratory Rate 24 H Blood Pressure Pulse Oximetry 90 Oxygen Delivery Room Air Oxygen Flow Rate Fraction of Inspired Oxygen 06/23/24 07:50 06/23/24 08:00 06/23/24 12:00 Temperature 99.5 F Pulse Rate Respiratory Rate Blood Pressure Pulse Oximetry 98 98 Oxygen Delivery Room Air Nasal Cannula Oxygen Flow Rate 4 Fraction of Inspired Oxygen 06/23/24 08:00 06/23/24 12:00 06/23/24 14:15 Temperature Pulse Rate 118 H 120 H 114 H Respiratory Rate Blood Pressure Pulse Oximetry 99 Oxygen Delivery Mechanical Ventilation Oxygen Flow Rate Fraction of Inspired Oxygen 100 06/23/24 14:45 06/23/24 14:46 06/23/24 14:00 Temperature Pulse Rate 107 H 107 H 112 H Respiratory Rate 24 H 24 H 24 H Blood Pressure 109/71 Pulse Oximetry 96 Oxygen Delivery Oxygen Flow Rate Fraction of Inspired Oxygen 06/23/24 16:00 06/23/24 16:00 06/23/24 16:00 Temperature
[2024-06-23] MEDS: NOREPINEPHRINE 8 MG/D5W 250 ML 8 MG/250 ML BAG 9.38 MG IV CONT (19:10)
[2024-06-23 20:10] LABS: Glucose Point of Care 132 mg/dl (65-105)
[2024-06-23] MEDS: LEVALBUTEROL NEB 1.25 MG/3 ML 0.63 MG INHALATION (20:14)
[2024-06-23] MEDS: IPRATROPIUM BR 0.02% INH SOLN 0.5 MG/2.5 ML VIAL INHALATION (20:15)
[2024-06-23] MEDS: SODIUM ZIRCONIUM CYCLOSILICATE 10 GM POWD.PACK PO (20:25)
[2024-06-23] MEDS: SODIUM BICARBONATE 8.4% 50 MEQ/50 ML SYRINGE IV PUSH (20:25)
[2024-06-23] MEDS: DEXTROSE 50% 25 GM/50 ML SYRINGE IV PUSH (20:25)
[2024-06-23] MEDS: INSULIN HUMAN REGULAR (*BKC) 100 UNITS/ML 10 UNITS IV PUSH (20:26)
[2024-06-23] MEDS: MINERAL OIL/WHITE PETROLATUM OINTMENT 1 APPLIC EACH EYE (20:55)
[2024-06-23] MEDS: CENTRAL LINE FLUSH 10 ML IV PUSH (20:55)
[2024-06-23] MEDS: SENNA/DOCUSATE SODIUM TABLET 1 TAB PO (21:02)
[2024-06-23 21:33] LABS: Glucose Point of Care 172 mg/dl (65-105)
[2024-06-23] MEDS: ALBUMIN HUMAN 5% 25 GM/500 ML BTL IV CONT (22:03)
[2024-06-23 22:59] LABS: Partial Thromboplastin Time 147.8 Seconds (22.3-36.8)
[2024-06-23 23:00] LABS: Alanine Aminotransferase 18 U/L (6-50); Albumin Level 2.1 g/dL (3.5-5.1); Alkaline Phosphatase 117 U/L (38-126); Anion Gap 9 mmol/L (4-12); Aspartate Amino Transferase 34 U/L (17-59); Bilirubin,Total 0.8 mg/dL (0.2-1.3); Blood Urea Nitrogen 49 mg/dL (9-20); Calcium 7.1 mg/dL (8.4-10.2); Carbon Dioxide 21 mmol/L (22-30); Chloride 118 mmol/L (98-107); Estimated CRCL calculation 46 ml/min; Estimated Glomerular Filt Rate 49; Glucose 108 mg/dL (65-110); Potassium 3.9 mmol/L (3.4-5.0); Sodium 148 mmol/L (137-145)
[2024-06-24] VITALS (29 sets, daily range): BP systolic 88–119; BP diastolic 50–73; PULSE 75–106; RESP 20–22; TEMP 37.1–38.6; O2SAT 98–100; BMI 29.5
[2024-06-24 00:51] LABS: Glucose Point of Care 137 mg/dl (65-105)
[2024-06-24] MEDS: IPRATROPIUM BR 0.02% INH SOLN 0.5 MG/2.5 ML VIAL INHALATION ×2 (02:12→08:13)
[2024-06-24] MEDS: LEVALBUTEROL NEB 1.25 MG/3 ML 0.63 MG INHALATION ×2 (02:12→08:13)
[2024-06-24] MEDS: PIPERACILLN/TAZ 3.375GM/NS50ML 3.375 GM/50 ML BAG IVPB ×2 (02:14→08:11)
[2024-06-24] MEDS: VANCOMYCIN 1,500 MG/NS 500 ML 1,500 MG/500 ML BAG 250 MG IVPB (03:25)
[2024-06-24 04:40] LABS: Hematocrit 26.7 % (42.0-52.0); Hemoglobin 8.6 g/dL (14.0-18.0); Mean Corpuscular HGB Conc 32.2 g/dl (32-36); Mean Corpuscular Hemoglobin 29.1 pg (26-34); Mean Corpuscular Volume 90.2 fl (80-100); Mean Platelet Volume 10.3 fl (7.4-10.4); Platelet Count Result 299 k/mm3 (150-375); Red Blood Count 2.96 M/mm3 (4.6-6.20); Red Cell Distribution Width 15.4 % (11.5-14.5); White Blood Count 14.8 K/mm3 (4.5-10.0)
[2024-06-24 04:50] LABS: Alanine Aminotransferase 15 U/L (6-50); Albumin Level 2.2 g/dL (3.5-5.1); Alkaline Phosphatase 99 U/L (38-126); Anion Gap 9 mmol/L (4-12); Aspartate Amino Transferase 28 U/L (17-59); Bilirubin,Total 0.8 mg/dL (0.2-1.3); Blood Urea Nitrogen 46 mg/dL (9-20); Calcium 7.2 mg/dL (8.4-10.2); Carbon Dioxide 21 mmol/L (22-30); Chloride 118 mmol/L (98-107); Estimated CRCL calculation 46 ml/min; Estimated Glomerular Filt Rate 49; Glucose 130 mg/dL (65-110); Potassium 4.1 mmol/L (3.4-5.0); Sodium 148 mmol/L (137-145)
[2024-06-24 04:52] LABS: INR 2.5; Prothrombin Time 27.5 Seconds (11.1-14.7)
[2024-06-24 04:53] LABS: Lipase 65 U/L (23-300); Magnesium 2.9 mg/dL (1.6-2.3); Phosphorus 3.5 mg/dL (2.5-4.5)
[2024-06-24 05:05] LABS: Band Neutrophils Percent 10 % (0-6); CRP 20.3 mg/dL (<1.0); Eosinophils Absolute Manual 0.29 K/mm3 (0.02-0.50); Eosinophils Percent Manual 2 % (0-4); Lymphocytes Absolute Manual 0.88 K/mm3 (1.1-4.5); Lymphocytes Percent Manual 6 % (18-44); Monocytes Absolute Manual 1.03 K/mm3 (0.1-0.90); Monocytes Percent Manual 7 % (3-9); Neutrophils Absolute Manual 12.58 K/mm3 (1.3-6.7); Neutrophils Percent Manual 75 % (46-73); Platelet Estimate Adequate (Adequate); Total Cells Counted 100
[2024-06-24 05:06] LABS: Alveolar/Arterial O2 Gradient 69.6 mmHg; Base Excess ABG -2.6 mEq/l (+/-2.0); Fractional Inspired Oxygen 40 %; HCO3 ABG 21.1 mEq/l (22.0-26.0); Oxygen Content ABG 13.3 %vol (16.0-22.0); Oxygen Saturation ABG 99.3 % (95.0-100.0); Oxyhemoglobin 98.7 % THb (90.0-100.0); PO2 ABG 178.8 mmHg (80.0-100.0); PO2 FiO2 Ratio Arterial Blood 4.47 %; Total Hemoglobin 9.3 g/dL (12.0-18.0); pH ABG 7.436 (7.350-7.450)
[2024-06-24 05:06] LABS: Burr Cells 1+; Ovalocytes 1+; Schistocytes None Seen
[2024-06-24 05:07] LABS: Modified Allen's Test Pass; Site Drawn RIGHT RADIAL
[2024-06-24 05:08] LABS: Arterial Blood Gas PEEP 5 cmH2O; Arterial Blood Gas Tidal Volume 530 ml; Arterial Blood Gas Vent Mode CMV; Arterial Blood Gas Ventilator rate 22 /MIN; Device VENTILATOR
[2024-06-24] MEDS: LACTATED RINGERS 1,000 ML 75 ML IV CONT (05:10)
[2024-06-24] MEDS: CENTRAL LINE FLUSH 10 ML IV PUSH (05:47)
[2024-06-24] MEDS: levETIRAcetam 500MG/NACL 100ML 500 MG/100 ML BAG 400 MG IVPB (08:11)
[2024-06-24] MEDS: PRIMIDONE 250 MG TABLET PO (08:12)
[2024-06-24] MEDS: PANTOPRAZOLE SODIUM IV 40 MG VIAL IV PUSH (08:12)
[2024-06-24] MEDS: MINERAL OIL/WHITE PETROLATUM OINTMENT 1 APPLIC EACH EYE (08:13)
[2024-06-24] MEDS: SENNA/DOCUSATE SODIUM TABLET 1 TAB PO (08:13)
--- NOTE | 2024-06-24 13:33 | PM.DS ---
DS: Admitting Diagnosis Discharge Date 06/24/24 Admitting Diagnosis Gen weakness DS: Discharge Diagnosis Discharge Diagnosis (1) Pulmonary embolism: Code(s): I26.99 - Other pulmonary embolism without acute cor pulmonale Status: Acute (2) Acute respiratory failure: Code(s): J96.00 - Acute respiratory failure, unspecified whether with hypoxia or hypercapnia Status: Acute DS: Summary Hospital Course Hospital Course: This is a 78-year-old male with a significant past medical history of intellectual disability, seizure disorder who is brought in by EMS weakness and inability to walk x1 day. According to family patient usually is able to walk. Patient was noted to have swelling to his left leg. Patient noncontributory to history of presenting illness or past medical history due to his intellectual disability. History of presenting illness and Past Medical history was obtained from the EMR. Workup in the hospital head CT which showed stable moderate nonspecific cerebral white matter disease likely representing chronic small vessel ischemic disease. Chest x-ray showed mild interstitial edema. Initial labs showed a normal white blood cell count of 9.9, hemoglobin 11.0, sodium 131, chloride 93, proBNP 247. UA was obtained and showed 1+ urine protein, 1+ urine bilirubin, 1+ leukocytes, 3-5 urine RBC, 11-20 urine WBC, rare bacteria. Urine culture was obtained and is pending. Last urine culture reviewed from 01/09/2023 showed Enterococcus species which was pansensitive. Patient was given Tylenol, 40 mg IV push Lasix, and started on IV fluids while in the ED. Patient was managed for stercoral proctitis and fecal impaction. GI was involved and he was placed on laxaives and antibiotics. He was also diagnosed f left Lower extremity DVT and placed on Eliquis, however on the 06/23 patient became unresponsive and rapid response was activated, CTA Chest and AP done showed multiple PE with right heart strain. He progressed to needing oxygen and eventually intubated adn transferred to the ICU. I consulted with [facility] hospitalist and secured a transfer to possible thrombectomy given right heart strain, also given that patient proceeded to have PE while on Eliquis, he may need IVC filter for which we do not have IR. Patient was monitored in the ICU until he was transferred. Assessment and Plan (1) Abdominal pain: Code(s): R10.9 - Unspecified abdominal pain Status: Acute (2) DVT (deep venous thrombosis): Code(s): I82.409 - Acute embolism and thrombosis of unspecified deep veins of unspecified lower extremity Status: Acute (3) UTI (urinary tract infection): Qualifiers: Urinary tract infection type: site unspecified Hematuria presence: without hematuria Qualified Code(s): N39.0 - Urinary tract infection, site not specified Code(s): N39.0 - Urinary tract infection, site not specified Status: Acute Plan PE with right heart strain Patient was managed with Eliquis for DVT before to being diagnosed with PE Reverted to Heparin infusion Hold Eliquis Troponin negative, ECHO showed EF >70%, grade I diastolic dysfunction, RV chamber not well visualized, RVSF reduced. Will follow up with [facility] about transfer discussed with family is DNR/DNI monitor very closely CTA Chest and AP reviewed Sepsis likely from Stercoral proctitis vs pneumonia Continue IVF, continue broad-spectrum antibiotics F/u with cultures monitor closely low threshholds for ICU transfer Fecal impaction Patient abdominal pain has been evaluated and CT was performed which shows stercoral colitis. added MiraLax and sennakot in his bowel regimen but still he does not have any bowel movement. added antibiotic ciprofloxacin and metronidazole. KUB which shows persistent large amount of predominantly distal colonic stool consistent with fecal impaction and constipation. Patient needs a manual fecal im
--- NOTE | 2024-06-24 14:03 | PM.TDS ---
Transfer Discharge Sum: Prov Provider Date of admission: 06/19/24 18:23 Primary care physician: Campos Flores MD Admitting clinician: Jah Chamorro MD Consults: 06/21/24 Consult to Physician Routine Comment: spoke to dr @0900 (,) Consulting Provider: Martir Combs gin feeder/MD group to consult: On-call GI Reason for consultation: Fecal impaction Has provider been notified: Yes 06/23/24 Consult to Physician Routine Comment: Consulting Provider: Daryn Rodriguez Reason for consultation: icu transfer Has provider been notified: Yes DS: Admitting Diagnosis Discharge Date 06/24/24 Admitting Diagnosis Gen weakness DS: Discharge Diagnosis Discharge Diagnosis (1) Pulmonary embolism: Code(s): I26.99 - Other pulmonary embolism without acute cor pulmonale Status: Acute (2) Acute respiratory failure: Code(s): J96.00 - Acute respiratory failure, unspecified whether with hypoxia or hypercapnia Status: Acute (3) Stercoral colitis: Code(s): K52.89 - Other specified noninfective gastroenteritis and colitis Status: Acute Transfer Discharge Sum: Med Medications Active and Home Medications: Home Medications fexofenadine 180 mg tablet (Terri Allergy) 180 mg PO DAILY 04/14/20 [History Confirmed 06/15/24] cholecalciferol (vitamin D3) 125 mcg (5,000 unit) capsule 125 mcg PO DAILY #30 caps 08/04/20 [Rx Confirmed 06/15/24] folic acid 800 mcg tablet 0.8 mg PO DAILY 02/15/21 [History Confirmed 06/15/24] mecobalamin (vitamin B12) 1,000 mcg disintegrating tablet,sublingual 1,000 mcg sublingual DAILY 02/15/21 [History Confirmed 06/15/24] phenytoin sodium extended 200 mg capsule 200 mg PO BID #180 caps 05/14/24 [Rx Confirmed 06/15/24] ciprofloxacin HCl 500 mg tablet 500 mg PO Q12H #20 tabs 06/12/24 [Rx Confirmed 06/15/24] finasteride 5 mg tablet 5 mg PO DAILY 06/15/24 [History Confirmed 06/15/24] primidone 250 mg tablet 250 mg PO BID 06/15/24 [History Confirmed 06/15/24] Transfer Discharge Sum: Hosp Hospital Course Hospital course: This is a 78-year-old male with a significant past medical history of intellectual disability, seizure disorder who is brought in by EMS weakness and inability to walk x1 day. According to family patient usually is able to walk. Patient was noted to have swelling to his left leg. Patient noncontributory to history of presenting illness or past medical history due to his intellectual disability. History of presenting illness and Past Medical history was obtained from the EMR. Workup in the hospital head CT which showed stable moderate nonspecific cerebral white matter disease likely representing chronic small vessel ischemic disease. Chest x-ray showed mild interstitial edema. Initial labs showed a normal white blood cell count of 9.9, hemoglobin 11.0, sodium 131, chloride 93, proBNP 247. UA was obtained and showed 1+ urine protein, 1+ urine bilirubin, 1+ leukocytes, 3-5 urine RBC, 11-20 urine WBC, rare bacteria. Urine culture was obtained and is pending. Last urine culture reviewed from 01/09/2023 showed Enterococcus species which was pansensitive. Patient was given Tylenol, 40 mg IV push Lasix, and started on IV fluids while in the ED. Patient was managed for stercoral proctitis and fecal impaction. GI was involved and he was placed on laxaives and antibiotics. He was also diagnosed f left Lower extremity DVT and placed on Eliquis, however on the 06/23 patient became unresponsive and rapid response was activated, CTA Chest and AP done showed multiple PE with right heart strain. He progressed to needing oxygen and eventually intubated adn transferred to the ICU. I consulted with [facility] hospitalist and secured a transfer to possible thrombectomy given right heart strain, also given that patient proceeded to have PE while on Eliquis, he may need IVC filter for which we do not have IR. Patient was monitored in the ICU until he was rojas
== END 2024-06-24 09:50 | disposition short-term general hospital (02) | DRG 871 ==
LOC: ANHED 16:25 → ANH3MEDSUR 17:27 → ANHIMU 06-23 02:42 → ANHICU 06-23 13:36
PROVIDERS: General Practice; Hospitalist; Internal Medicine; Nurse Practitioner Acute Care; Admitting Provider Internal Medicine; Emergency Provider Family Medicine; PCP Internal Medicine; Visit Provider Internal Medicine
DX: A41.9 Sepsis, unspecified organism (principal); G92.8 Other toxic encephalopathy; I26.99 Other pulmonary embolism without acute cor pulmonale; J96.00 Acute respiratory failure, unspecified whether with hypoxia or hypercapnia; N39.0 Urinary tract infection, site not specified; I82.412 Acute embolism and thrombosis of left femoral vein; I82.432 Acute embolism and thrombosis of left popliteal vein; K52.89 Other specified noninfective gastroenteritis and colitis; K56.41 Fecal impaction; B95.8 Unspecified staphylococcus as the cause of diseases classified elsewhere; E86.0 Dehydration; F79 Unspecified intellectual disabilities; G40.909 Epilepsy, unspecified, not intractable, without status epilepticus; N40.0 Benign prostatic hyperplasia without lower urinary tract symptoms; Z66 Do not resuscitate
CPT/HCPCS: 31500; 36415; 36600; 70450; 70496; 70498; 71045; 71046; 71275; 74018; 74176; 74177; 80048; 80053; 81001; 82375; 82805; 82948; 83050; 83605; 83690; 83735; 83880; 84100; 84145; 84484; 85025; 85027; 85610; 85730; 86140; 87040; 87077; 87086; 87088; 87181; 87641; 93005; 93306; 93970; 94002; 94003; 94640; 96361; 96365; 96375; 96376; 97110; 97162; 97165; 97530; 97535; 99285; A9270; C1751; C8929; G0378; J0696; J1644; J1815; J1836; J1940; J1953; J2250; J2405; J2470; J2543; J3010; J3370; J7030; J7040; J7042; J7120; J7121; P9045; Q9957; Q9967